=== PATIENT | female | born 1980 | race Caucasian/White ===

== ENCOUNTER 2018-08-21 00:12 | Emergency (ER) | payer MEDICARE, OTHER ==
[2018-08-21] MEDS ORDERED: SODIUM CHLORIDE 0.9% 1,000 ML IV STA (01:35)
[2018-08-21] MEDS ORDERED: ONDANSETRON 4 MG/2 ML VIAL IVP STA (01:35)
[2018-08-21] MEDS ORDERED: DICYCLOMINE 10 MG/ML 2 ML AMP IM STA (01:36)
[2018-08-21] MEDS ORDERED: MORPHINE SULFATE 4 MG/ML SYRINGE IVP STA (01:36)
[2018-08-21 02:52] LABS: ALT 40 U/L (9-52); AST 26 U/L (14-36); Albumin 4.9 g/dL (3.5-5.0); Alkaline Phosphatase 96 U/L (38-126); Amylase 106 U/L (30-110); Anion Gap 14 mmol/L; Blood Urea Nitrogen 19 mg/dL (7-17); Calcium 10.9 mg/dL (8.4-10.2); Carbon Dioxide 24 mmol/L (22-30); Chloride 101 mmol/L (98-107); Glucose 93 mg/dL (74-99); Lipase 253 U/L (23-300); Potassium 4.3 mmol/L (3.5-5.1); Sodium 139 mmol/L (137-145); Total Bilirubin 1.3 mg/dL (0.2-1.3); Total Protein 8.5 g/dL (6.3-8.2)
[2018-08-21 02:53] LABS: Basophils # (A) 0.1 k/uL (0-0.2); Basophils % (A) 1 %; Eosinophils # (A) 0.3 k/uL (0-0.7); Eosinophils % (A) 2 %; HCT 48.5 % (34.0-46.0); HGB 16.4 gm/dL (11.4-16.0); Lymphocytes # (A) 2.3 k/uL (1.0-4.8); Lymphocytes % (A) 16 %; MCH 32.4 pg (25.0-35.0); MCHC 33.8 g/dL (31.0-37.0); MCV 95.8 fL (80.0-100.0); Mean Platelet Volume 7.1; Monocytes # (A) 0.7 k/uL (0-1.0); Monocytes % (A) 5 %; Neutrophils # (A) 11.1 k/uL (1.3-7.7); Neutrophils % (A) 76 %; Platelet Count 512 k/uL (150-450); RBC 5.06 m/uL (3.80-5.40); RDW 12.6 % (11.5-15.5); WBC 14.7 k/uL (3.8-10.6)
--- NOTE | 2018-08-21 03:15 | CT ---
EXAMINATION TYPE: CT abdomen pelvis w con DATE OF EXAM: 08/21/2018 COMPARISON: None HISTORY: abd pain CT DLP: 684 mGycm Automated exposure control for dose reduction was used. TECHNIQUE: Helical acquisition of images was performed from the lung bases through the pelvis. CONTRAST: Performed without Oral Contrast and with IV Contrast, patient injected with 100 mL of Isovue 300. FINDINGS: Lung bases are clear of infiltrate. There is no pleural effusion. Heart size is normal. There is no p ericardial effusion. Liver spleen pancreas gallbladder appear normal. Bile ducts are not dilated. Stomach is large. There is no adrenal mass. Kidneys show satisfactory contrast opacification. There is no hydronephrosi s. Ureters are not dilated. There are clips in the right mid abdomen posteriorly. There is no retrope ritoneal adenopathy. There is lobulated contour of the uterus consistent with fibroid uterus. There i s no inguinal hernia. Bladder distends smoothly. I see no intestinal wall thickening. There are no di lated loops. There is no mesenteric edema or adenopathy. Lumbar spine is intact. The bony pelvis appe ars intact. There is large bowel fluid suggestive of some degree of diarrhea. This is seen down to th e rectum. IMPRESSION: Fibroid uterus. Surgical clips apparently from appendectomy. There is fluid seen in the large bowel down to the rectum consistent with diarrhea..
--- NOTE | 2018-08-21 03:16 | ED ---
Abdominal Pain HPI - General Chief Complaint: Abdominal Pain Stated Complaint: Vomiting, SOB, Abd pain Time Seen by Provider: 08/21/18 01:04 Source: patient, family Mode of arrival: wheelchair Limitations: no limitations - History of Present Illness Initial Comments: 38-year-old female patient presents to the emergency department today for evaluation of left-sided abdominal pain that radiates into her back. Patient states that this started a few hours ago while shopping. Patient states that she has had numerous episodes of both vomiting and diarrhea since symptom onset. She denies any fevers or chills. Denies any hematochezia, melena, or hematemesis. Denies any hematuria, dysuria, urinary frequency, urinary urgency. 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 States she has been sick with upper respiratory symptoms for the last week. Patient states that she did have food from a bar earlier today she is unsure if her symptoms may be related to food poisoning. Patient denies any recent rash, shortness breath, chest pain, numbness, tingling, dizziness, weakness, headache, visual changes, or any other complaints. - Related Data Previous Rx's Medication Instructions Recorded Promethaz-Cod 6.25-10 mg/5 ml 5 ml PO Q4HR PRN #50 ml 07/19/17 [Phenergan with Codeine] Dicyclomine [Bentyl] 20 mg PO QID #12 tablet 08/21/18 Ondansetron [Zofran ODT] 4 mg PO Q8HR PRN #12 tab 08/21/18 Allergies Allergy/AdvReac Type Severity Reaction Status Date / Time No Known Allergies Allergy Verified 04/08/14 19:05 Review of Systems ROS Statement: Those systems with pertinent positive or pertinent negative responses have been documented in the HPI. ROS Other: All systems not noted in ROS Statement are negative. Past Medical History Past Medical History: Cancer, COPD, Osteoarthritis (OA) Additional Past Medical History / Comment(s): scoliosis, djd History of Any Multi-Drug Resistant Organisms: None Reported Past Surgical History: Appendectomy Past Psychological History: Anxiety, Depression Smoking Status: Current every day smoker Past Alcohol Use History: Occasional Past Drug Use History: None Reported General Exam Limitations: no limitations General appearance: alert, in no apparent distress, other (Physical well- developed, well-nourished adult female patient in mild distress related to pain. Vital signs upon presentation are temperature 98.0F, pulse 101, respirations 22, blood pressure 119/87, pulse ox 99% on room air.) Respiratory exam: Present: normal lung sounds bilaterally. Absent: respiratory distress, wheezes, rales, rhonchi, stridor Cardiovascular Exam: Present: regular rate, normal rhythm, normal heart sounds. Absent: systolic murmur, diastolic murmur, rubs, gallop, clicks GI/Abdominal exam: Present: soft, tenderness (Generalized abdominal tenderness) , normal bowel sounds. Absent: distended, guarding, rebound, rigid Neurological exam: Present: alert, oriented X3, CN II-XII intact Psychiatric exam: Present: normal affect, normal mood Skin exam: Present: warm, dry, intact, normal color. Absent: rash Course Vital Signs 08/21/18 08/21/18 08/21/18 00:18 01:18 03:56 Temperature 98.0 F 98.4 F 98.6 F Pulse Rate 101 H 95 Respiratory 22 20 Rate Blood Pressure 119/87 100/63 O2 Sat by Pulse 99 93 L Oximetry Medical Decision Making - Medical Decision Making 38-year-old female patient presents to the emergency department today for complaints of abdominal pain radiating through to the back, vomiting, and diarrhea. Physical examination did reveal generalized abdominal tenderness. There is no CVA tenderness. She denied urinary symptoms. Labs reviewed and did reveal elevated white blood cell count of 14.7, hemoglobin 16.4, BUN 19. CT of the abdomen and pelvis was obtained due to patient's discomfort level and tenderness, this did show evidence of a large stomach and fluid-filled colon down to the rectum. Patient did report eating some questionable coleslaw at a bar earlier today. Patient symptoms consistent with either food poisoning or viral gastroenteritis. She'll be given starter pack for Zofran. She'll be discharged home with Bentyl and Zofran prescriptions. She is instructed to start with clear liquid diet and advance as tolerated. She is instructed to follow-up with her primary care physician for recheck in 1-2 days. Return parameters discussed in detail. She verbalizes understanding and agrees with this plan. - Lab Data Result diagrams: 08/21/18 02:28 08/21/18 02:28 Lab Results 08/21/18 08/21/18 08/21/18 Range/Units 02:28 02:28 02:28 WBC 14.7 H (3.8-10.6) k/uL RBC 5.06 (3.80-5.40) m/uL Hgb 16.4 H (11.4-16.0) gm/dL Hct 48.5 H (34.0-46.0) % MCV 95.8 (80.0-100.0) fL MCH 32.4 (25.0-35.0) pg MCHC 33.8 (31.0-37.0) g/dL RDW 12.6 (11.5-15.5) % Plt Count 512 H (150-450) k/uL Neutrophils % 76 % Lymphocytes % 16 % Monocytes % 5 % Eosinophils % 2 % Basophils % 1 % Neutrophils # 11.1 H (1.3-7.7) k/uL Lymphocytes # 2.3 (1.0-4.8) k/uL Monocytes # 0.7 (0-1.0) k/uL Eosinophils # 0.3 (0-0.7) k/uL Basophils # 0.1 (0-0.2) k/uL Sodium 139 (137-145) mmol/L Potassium 4.3 (3.5-5.1) mmol/L Chloride 101 (98-107) mmol/L Carbon Dioxide 24 (22-30) mmol/L Anion Gap 14 mmol/L BUN 19 H (7-17) mg/dL Creatinine 0.89 (0.52-1.04) mg/dL Est GFR (CKD-EPI)AfAm >90 (>60 ml/min/1.73 sqM) Est GFR (CKD-EPI)NonAf 81 (>60 ml/min/1.73 sqM) Glucose 93 (74-99) mg/dL Plasma Lactic Acid James 1.4 (0.7-2.0) mmol/L Calcium 10.9 H (8.4-10.2) mg/dL Total Bilirubin 1.3 (0.2-1.3) mg/dL AST 26 (14-36) U/L ALT 40 (9-52) U/L Alkaline Phosphatase 96 (38-126) U/L Total Protein 8.5 H (6.3-8.2) g/dL Albumin 4.9 (3.5-5.0) g/dL Amylase 106 (30-110) U/L Lipase 253 (23-300) U/L - Radiology Data Radiology results: report reviewed, image reviewed CT abdomen and pelvis with contrast was obtained. Report was reviewed in its entirety. Impression by Dr. Duke shows fibroid uterus. Surgical clips apparently from appendectomy. There is fluid seen in the large bowel down to the rectum consistent with diarrhea. Disposition Clinical Impression: Gastroenteritis Disposition: HOME SELF-CARE Condition: Good Instructions: Gastroenteritis (ED), Food Poisoning (ED) Additional Instructions: Take medications as directed. Start with clear liquid diet and advance as tolerated. Follow up with your primary care physician for recheck in 1-2 days. Return immediately for any new, worsening, or concerning symptoms. Prescriptions: Dicyclomine [Bentyl] 20 mg PO QID #12 tablet Ondansetron [Zofran ODT] 4 mg PO Q8HR PRN #12 tab PRN Reason: Nausea Is patient prescribed a controlled substance at d/c from ED?: No Referrals: Bi Bass MD [Primary Care Provider] - 1-2 days Time of Disposition: 03:38
[2018-08-21] MEDS ORDERED: MORPHINE SULFATE 2 MG/ML SYRINGE IVP STA (03:36)
[2018-08-21] MEDS ORDERED: ONDANSETRON 4 MG ODT STARTER PACK 2 TAB BTL PO STA (03:36)
[2018-08-21 03:57] VITALS: BP 100/63; PULSE 95; RESP 20; TEMP 98.6
== END 2018-08-21 04:06 | disposition home or self-care (01) ==
LOC: EC 00:12
DX: K52.9 Noninfective gastroenteritis and colitis, unspecified (principal); R06.02 Shortness of breath; F17.200 Nicotine dependence, unspecified, uncomplicated; Z90.49 Acquired absence of other specified parts of digestive tract
CPT/HCPCS: 99284; 96374; 96375; 96376; 96361; 96372; 36415; 80053; 82150; 83605; 83690; 85025; 74177; J2270 ×2; J0500; J2405; S0119; Q9967

== ENCOUNTER 2018-08-29 21:37 | Emergency (ER) | payer MEDICARE, OTHER ==
[2018-08-29] MEDS ORDERED: MORPHINE SULFATE 4 MG/ML SYRINGE IV STA (22:24)
[2018-08-29] MEDS ORDERED: SODIUM CHLORIDE 0.9% 1,000 ML IV STA (22:24)
[2018-08-29] MEDS ORDERED: KETOROLAC 30 MG/ML 1 ML VIAL IVP STA (22:24)
[2018-08-29] MEDS ORDERED: PANTOPRAZOLE 40 MG/10 ML VIAL IVP STA (22:24)
[2018-08-29] MEDS ORDERED: ONDANSETRON 4 MG/2 ML VIAL IVP STA (22:24)
--- NOTE | 2018-08-29 22:26 | ED ---
Abdominal Pain HPI - General Chief Complaint: Abdominal Pain Stated Complaint: Side pain, revisit Time Seen by Provider: 08/29/18 22:13 Source: patient, RN notes reviewed, old records reviewed Mode of arrival: ambulatory Limitations: no limitations - History of Present Illness Initial Comments: This is a 38-year-old female the ER for evaluation. States she is presenting for evaluation of bowel pain. Right upper quadrant bowel pain nausea vomiting and decreased bowel output, decreased hunger, no fevers no cough no congestion or recent travel history no known sick contacts. Patient states she was seen in this emergency department last week for similar complaints but had unknown diagnosis. MD Complaint: abdominal pain -: week(s) Location: RUQ, epigastric Radiation: R flank Severity: moderate Severity scale (1-10): 5 Quality: sharp, dull Consistency: intermittent, colicky Improves With: vomiting Worsens With: movement Associated Symptoms: nausea, vomiting, diarrhea - Related Data Home Medications Medication Instructions Recorded Confirmed ALPRAZolam [Xanax] 0.5 mg PO TID PRN 08/29/18 08/29/18 Ergocalciferol (Vitamin D2) 50,000 unit PO Q7D 08/29/18 08/29/18 [Vitamin D2] Gabapentin [Neurontin] 100 mg PO TID 08/29/18 08/29/18 HYDROcodone/APAP 10-325MG [[place] 1 tab PO Q6HR PRN 08/29/18 08/29/18 10-325] Omeprazole [PriLOSEC] 40 mg PO DAILY 08/29/18 08/29/18 QUEtiapine [SEROquel] 100 mg PO HS 08/29/18 08/29/18 risperiDONE 3 mg PO HS 08/29/18 08/29/18 traZODone HCL 100 mg PO HS 08/29/18 08/29/18 Allergies Allergy/AdvReac Type Severity Reaction Status Date / Time No Known Allergies Allergy Verified 08/29/18 22:23 Review of Systems ROS Statement: Those systems with pertinent positive or pertinent negative responses have been documented in the HPI. ROS Other: All systems not noted in ROS Statement are negative. Past Medical History Past Medical History: Cancer, COPD, Osteoarthritis (OA) Additional Past Medical History / Comment(s): scoliosis, djd History of Any Multi-Drug Resistant Organisms: None Reported Past Surgical History: Appendectomy Past Psychological History: Anxiety, Depression Smoking Status: Current every day smoker Past Alcohol Use History: Occasional Past Drug Use History: None Reported General Exam Limitations: no limitations General appearance: alert, in no apparent distress Head exam: Present: atraumatic, normocephalic, normal inspection Eye exam: Present: normal appearance, PERRL, EOMI. Absent: scleral icterus, conjunctival injection, periorbital swelling ENT exam: Present: normal exam, mucous membranes moist Neck exam: Present: normal inspection. Absent: tenderness, meningismus, lymphadenopathy Respiratory exam: Present: normal lung sounds bilaterally. Absent: respiratory distress, wheezes, rales, rhonchi, stridor Cardiovascular Exam: Present: regular rate, normal rhythm, normal heart sounds. Absent: systolic murmur, diastolic murmur, rubs, gallop, clicks GI/Abdominal exam: Present: soft, tenderness (Right upper quadrant), normal bowel sounds. Absent: distended, guarding, rebound, rigid Extremities exam: Present: normal inspection, full ROM, normal capillary refill. Absent: tenderness, pedal edema, joint swelling, calf tenderness Back exam: Present: normal inspection Neurological exam: Present: alert, oriented X3, CN II-XII intact Psychiatric exam: Present: normal affect, normal mood Skin exam: Present: warm, dry, intact, normal color. Absent: rash Course Vital Signs 08/29/18 08/30/18 21:41 00:14 Temperature 98.3 F 98.4 F Pulse Rate 85 70 Respiratory 18 19 Rate Blood Pressure 115/78 114/75 O2 Sat by Pulse 99 99 Oximetry - Reevaluation(s) Reevaluation #1: 08/29/18 22:26 Medical record and prior ER visits are reviewed Medical Decision Making - Medical Decision Making 2-year-old female the ER for eversion of bowel pain recent evaluation for same, head CAT scan which was negative, though she has ultrasound is negative labwork which is normal patient will be discharged home - Lab Data Result diagrams: 08/29/18 22:30 08/29/18 22:30 Lab Results 08/29/18 08/29/18 08/29/18 Range/Units 22:30 22:30 22:40 WBC 11.9 H (3.8-10.6) k/uL RBC 4.46 (3.80-5.40) m/uL Hgb 14.7 (11.4-16.0) gm/dL Hct 42.7 (34.0-46.0) % MCV 95.8 (80.0-100.0) fL MCH 32.8 (25.0-35.0) pg MCHC 34.3 (31.0-37.0) g/dL RDW 12.8 (11.5-15.5) % Plt Count 389 (150-450) k/uL Neutrophils % 68 % Lymphocytes % 23 % Monocytes % 4 % Eosinophils % 3 % Basophils % 1 % Neutrophils # 8.1 H (1.3-7.7) k/uL Lymphocytes # 2.7 (1.0-4.8) k/uL Monocytes # 0.5 (0-1.0) k/uL Eosinophils # 0.3 (0-0.7) k/uL Basophils # 0.1 (0-0.2) k/uL Sodium 142 (137-145) mmol/L Potassium 4.1 (3.5-5.1) mmol/L Chloride 108 H (98-107) mmol/L Carbon Dioxide 25 (22-30) mmol/L Anion Gap 9 mmol/L BUN 10 (7-17) mg/dL Creatinine 0.72 (0.52-1.04) mg/dL Est GFR (CKD-EPI)AfAm >90 (>60 ml/min/1.73 sqM) Est GFR (CKD-EPI)NonAf >90 (>60 ml/min/1.73 sqM) Glucose 97 (74-99) mg/dL Calcium 10.0 (8.4-10.2) mg/dL Total Bilirubin 0.3 (0.2-1.3) mg/dL AST 20 (14-36) U/L ALT 32 (9-52) U/L Alkaline Phosphatase 59 (38-126) U/L Total Protein 7.0 (6.3-8.2) g/dL Albumin 4.2 (3.5-5.0) g/dL Amylase 101 (30-110) U/L Lipase 508 H (23-300) U/L Urine Color Urine Appearance (Clear) Urine pH (5.0-8.0) Ur Specific [place] (1.001-1.035) Urine Protein (Negative) Urine Glucose (UA) (Negative) Urine Ketones (Negative) Urine Blood (Negative) Urine Nitrite (Negative) Urine Bilirubin (Negative) Urine Urobilinogen (<2.0) mg/dL Ur Leukocyte Esterase (Negative) Urine WBC (0-5) /hpf Ur Squamous Epith Cells (0-4) /hpf Amorphous Sediment (None) /hpf Urine Bacteria (None) /hpf Urine Mucus (None) /hpf Urine HCG, Qual Not Detected (Not Detectd) 08/29/18 Range/Units 22:40 WBC (3.8-10.6) k/uL RBC (3.80-5.40) m/uL Hgb (11.4-16.0) gm/dL Hct (34.0-46.0) % MCV (80.0-100.0) fL MCH (25.0-35.0) pg MCHC (31.0-37.0) g/dL RDW (11.5-15.5) % Plt Count (150-450) k/uL Neutrophils % % Lymphocytes % % Monocytes % % Eosinophils % % Basophils % % Neutrophils # (1.3-7.7) k/uL Lymphocytes # (1.0-4.8) k/uL Monocytes # (0-1.0) k/uL Eosinophils # (0-0.7) k/uL Basophils # (0-0.2) k/uL Sodium (137-145) mmol/L Potassium (3.5-5.1) mmol/L Chloride (98-107) mmol/L Carbon Dioxide (22-30) mmol/L Anion Gap mmol/L BUN (7-17) mg/dL Creatinine (0.52-1.04) mg/dL Est GFR (CKD-EPI)AfAm (>60 ml/min/1.73 sqM) Est GFR (CKD-EPI)NonAf (>60 ml/min/1.73 sqM) Glucose (74-99) mg/dL Calcium (8.4-10.2) mg/dL Total Bilirubin (0.2-1.3) mg/dL AST (14-36) U/L ALT (9-52) U/L Alkaline Phosphatase (38-126) U/L Total Protein (6.3-8.2) g/dL Albumin (3.5-5.0) g/dL Amylase (30-110) U/L Lipase (23-300) U/L Urine Color Light Yellow Urine Appearance Cloudy H (Clear) Urine pH 7.5 (5.0-8.0) Ur Specific [place] 1.012 (1.001-1.035) Urine Protein Negative (Negative) Urine Glucose (UA) Negative (Negative) Urine Ketones Negative (Negative) Urine Blood Negative (Negative) Urine Nitrite Negative (Negative) Urine Bilirubin Negative (Negative) Urine Urobilinogen <2.0 (<2.0) mg/dL Ur Leukocyte Esterase Negative (Negative) Urine WBC 2 (0-5) /hpf Ur Squamous Epith Cells 28 H (0-4) /hpf Amorphous Sediment Rare H (None) /hpf Urine Bacteria Occasional H (None) /hpf Urine Mucus Rare H (None) /hpf Urine HCG, Qual (Not Detectd) - Radiology Data Radiology results: report reviewed (Ultrasound abdomen is negative for gallbladder disease), image reviewed Disposition Clinical Impression: Abdominal pain Disposition: HOME SELF-CARE Condition: Good Instructions: Abdominal Pain (ED) Is patient prescribed a controlled substance at d/c from ED?: No Referrals: Bi Bass MD [Primary Care Provider] - 1-2 days
[2018-08-29 23:22] LABS: Basophils # (A) 0.1 k/uL (0-0.2); Basophils % (A) 1 %; Eosinophils # (A) 0.3 k/uL (0-0.7); Eosinophils % (A) 3 %; HCT 42.7 % (34.0-46.0); HGB 14.7 gm/dL (11.4-16.0); Lymphocytes # (A) 2.7 k/uL (1.0-4.8); Lymphocytes % (A) 23 %; MCH 32.8 pg (25.0-35.0); MCHC 34.3 g/dL (31.0-37.0); MCV 95.8 fL (80.0-100.0); Mean Platelet Volume 7.1; Monocytes # (A) 0.5 k/uL (0-1.0); Monocytes % (A) 4 %; Neutrophils # (A) 8.1 k/uL (1.3-7.7); Neutrophils % (A) 68 %; Platelet Count 389 k/uL (150-450); RBC 4.46 m/uL (3.80-5.40); RDW 12.8 % (11.5-15.5); WBC 11.9 k/uL (3.8-10.6)
[2018-08-29 23:26] LABS: Amorphous Sediment,Urine Rare /hpf; Appearance,Urine Cloudy (Clear); Bacteria,Urine Occasional /hpf; Bilirubin,Urine Negative (Negative); Blood,Urine Negative (Negative); Color,Urine Light Yellow; Glucose,Urine (UA) Negative (Negative); Ketones,Urine Negative (Negative); Leukocyte Esterase,Urine Negative (Negative); Mucus,Urine Rare /hpf; Nitrite,Urine Negative (Negative); PH, Urine 7.5 (5.0-8.0); Protein,Urine Negative (Negative); Specific Gravity,Urine 1.012 (1.001-1.035); Squamous Epithelial Cell,Urine 28 /hpf (0-4); Urobilinogen,Urine <2.0 mg/dL (<2.0); WBC,Urine 2 /hpf (0-5)
[2018-08-29 23:29] LABS: ALT 32 U/L (9-52); AST 20 U/L (14-36); Albumin 4.2 g/dL (3.5-5.0); Alkaline Phosphatase 59 U/L (38-126); Amylase 101 U/L (30-110); Anion Gap 9 mmol/L; Blood Urea Nitrogen 10 mg/dL (7-17); Carbon Dioxide 25 mmol/L (22-30); Chloride 108 mmol/L (98-107); Glucose 97 mg/dL (74-99); Lipase 508 U/L (23-300); Potassium 4.1 mmol/L (3.5-5.1); Sodium 142 mmol/L (137-145); Total Bilirubin 0.3 mg/dL (0.2-1.3)
--- NOTE | 2018-08-29 23:50 | US ---
EXAMINATION TYPE: US gallbladder DATE OF EXAM: 08/29/2018 COMPARISON: NONE CLINICAL HISTORY: Pain. Pain EXAM MEASUREMENTS: Liver Length: 14.5 cm Gallbladder Wall: 0.3 cm CBD: 0.3 cm Right Kidney: 9.5 x 3.8 x 4.2 cm Pancreas: Tail obscured by bowel gas Liver: wnl Gallbladder: wnl Evidence for sonographic Lane's sign: No CBD: wnl Right Kidney: wnl IMPRESSION: No gallstones or dilated ducts. Negative exam. No evidence of pancreatic mass.
[2018-08-30 00:20] VITALS: BP 114/75; PULSE 70; RESP 19; TEMP 98.4
== END 2018-08-30 00:15 | disposition home or self-care (01) ==
LOC: EC 21:37
DX: R10.11 Right upper quadrant pain (principal); R10.13 Epigastric pain; R11.2 Nausea with vomiting, unspecified; R19.7 Diarrhea, unspecified; F41.9 Anxiety disorder, unspecified; F32.9 Major depressive disorder, single episode, unspecified; F17.200 Nicotine dependence, unspecified, uncomplicated; Z90.49 Acquired absence of other specified parts of digestive tract; Z85.9 Personal history of malignant neoplasm, unspecified; Z79.899 Other long term (current) drug therapy
CPT/HCPCS: 36415; 80053; 82150; 83690; 85025; 81001; 81025; 87086; 76705; 99284; 96374; 96375 ×3; 96361; J2270; J2405; J1885; C9113

== ENCOUNTER 2018-11-25 11:51 | Emergency (ER) | payer MEDICARE, OTHER ==
[2018-11-25 12:24] VITALS: RESP 18
[2018-11-25 13:26] LABS: Basophils # (A) 0.1 k/uL (0-0.2); Basophils % (A) 0 %; Eosinophils # (A) 0.5 k/uL (0-0.7); Eosinophils % (A) 2 %; HCT 42.1 % (34.0-46.0); HGB 13.8 gm/dL (11.4-16.0); Lymphocytes # (A) 1.3 k/uL (1.0-4.8); Lymphocytes % (A) 5 %; MCH 32.5 pg (25.0-35.0); MCHC 32.9 g/dL (31.0-37.0); MCV 98.9 fL (80.0-100.0); Mean Platelet Volume 7.3; Monocytes # (A) 0.9 k/uL (0-1.0); Monocytes % (A) 4 %; Neutrophils # (A) 20.9 k/uL (1.3-7.7); Neutrophils % (A) 88 %; Platelet Count 262 k/uL (150-450); RBC 4.25 m/uL (3.80-5.40); RDW 13.3 % (11.5-15.5); WBC 23.7 k/uL (3.8-10.6)
[2018-11-25] MEDS ORDERED: DEXAMETHASONE SOD PHOSPHATE 4 MG/ML 1 ML VIAL IV STA (13:26)
[2018-11-25 13:37] LABS: ALT 25 U/L (9-52); AST 25 U/L (14-36); Albumin 3.9 g/dL (3.5-5.0); Alkaline Phosphatase 107 U/L (38-126); Anion Gap 10 mmol/L; Blood Urea Nitrogen 10 mg/dL (7-17); Calcium 9.4 mg/dL (8.4-10.2); Carbon Dioxide 22 mmol/L (22-30); Chloride 106 mmol/L (98-107); Glucose 117 mg/dL (74-99); Potassium 3.9 mmol/L (3.5-5.1); Sodium 138 mmol/L (137-145); Total Bilirubin 1.2 mg/dL (0.2-1.3); Total Protein 6.8 g/dL (6.3-8.2)
[2018-11-25] MEDS ORDERED: AMOXICILLIN 500 MG CAP PO STA (13:37)
[2018-11-25] MEDS ORDERED: ACETAMINOPHEN TAB 500 MG TAB PO STA (13:42)
--- NOTE | 2018-11-25 13:43 | ED ---
ENT HPI - General Chief complaint: ENT Stated complaint: Sore throat Source: patient Mode of arrival: ambulatory Limitations: no limitations - History of Present Illness Initial comments: 38-year-old female presenting for sore throat 3 days. Patient states she has a sore throat as well as feelings of chills for the past 2 days. She states she has increased pain with swallowing. Patient denies any difficulty swallowing. Patient denies any difficulty breathing. Patient does feel like her right side of her neck is swollen. Pt does admit to some voice changes, hoarse in characteristic. She denies any cough, nausea, vomiting, bowel pain, chest pain, dyspnea, dyspnea on exertion, back pain, neck pain or stiffness. Remaining review of systems negative upon arrival patient appears well no signs of acute distress, or toxicity. Vital signs are within normal limits. - Related Data Home Medications Medication Instructions Recorded Confirmed ALPRAZolam [Xanax] 0.5 mg PO TID PRN 08/29/18 11/25/18 Ergocalciferol (Vitamin D2) 50,000 unit PO QMONTH 08/29/18 11/25/18 [Vitamin D2] Gabapentin [Neurontin] 100 mg PO TID 08/29/18 11/25/18 HYDROcodone/APAP 10-325MG [[place] 1 tab PO Q6HR PRN 08/29/18 11/25/18 10-325] Omeprazole [PriLOSEC] 20 mg PO DAILY PRN 08/29/18 11/25/18 risperiDONE 3 mg PO HS 08/29/18 11/25/18 traZODone HCL 100 mg PO HS 08/29/18 11/25/18 Diphenoxylate HCl/Atropine 1 tab PO DAILY PRN 11/25/18 11/25/18 [Lomotil 2.5-0.025 mg Tablet] Previous Rx's Medication Instructions Recorded Amoxicillin 500 mg PO Q12HR 10 Days #20 cap 11/25/18 predniSONE 20 mg PO DAILY 5 Days #5 tab 11/25/18 Allergies Allergy/AdvReac Type Severity Reaction Status Date / Time No Known Allergies Allergy Verified 11/25/18 12:48 Review of Systems ROS Statement: Those systems with pertinent positive or pertinent negative responses have been documented in the HPI. ROS Other: All systems not noted in ROS Statement are negative. Past Medical History Past Medical History: COPD, Osteoarthritis (OA) Additional Past Medical History / Comment(s): scoliosis, djd History of Any Multi-Drug Resistant Organisms: None Reported Past Surgical History: Appendectomy Past Psychological History: Anxiety, Depression Smoking Status: Current every day smoker Past Alcohol Use History: Rare Past Drug Use History: None Reported General Exam - General Exam Comments Initial Comments: General: The patient is awake and alert, in no distress, and does not appear acutely ill. Eye: +3 mm pupils are equal, round and reactive to light, extra-ocular movements are intact. No nystagmus. There is normal conjunctiva bilaterally. No signs of icterus. Ears, nose, mouth and throat: There are moist mucous membranes and no oral lesions. Pharynx is erythematous, there is bilateral tonsillar enlargement with exudates and crypts. Uvula slightly deviated toward the left. No swelling below the tongue, no evidence of dental abscess. Neck: The neck is supple, there is no tenderness or JVD. Bilateral anterior cervical lymphadenopathy, with right sided greater than the left. No trimus, no tripoding. Cardiovascular: There is a regular rate and rhythm. No murmur, rub or gallop is appreciated. Respiratory: Lungs are clear to auscultation, respirations are non-labored, breath sounds are equal. No wheezes, stridor, rales, or rhonchi. Gastrointestinal: Soft, non-distended, non-tender abdomen without masses or organomegaly noted. There is no rebound or guarding present. Musculoskeletal: Normal ROM, no tenderness. Strength 5/5. Sensation intact. Radial pulses equal bilaterally 2+. Neurological: A&O x 3. CN II-XII intact, There are no obvious motor or sensory deficits. Coordination appears grossly intact. Speech is normal. Skin: Skin is warm and dry and no rashes or lesions are noted. Psychiatric: Cooperative, appropriate mood & affect, normal judgment. Limitations: no limitations Course Vital Signs 11/25/18 11/25/18 12:21 15:45 Temperature 98.7 F 98.9 F Pulse Rate 87 84 Respiratory 18 18 Rate Blood Pressure 104/68 109/78 O2 Sat by Pulse 99 98 Oximetry Medical Decision Making - Medical Decision Making Strep A (+), CT revealed with adenopathy there is no evidence of abscess, pt given decadron and Amoxicillin. No signs of respiratory distress. Findings discussed with patient who at this time is comfortable with outpatient treatment with oral antibiotics. She was given a prescription for prednisone 20 mg daily 5 days as well as amoxicillin 500 twice a day 10 days. Pt is to f/ u in 1-2 days with primary provider and return immediately for any difficulty breathing or swallowing. Patient verbalized understanding. Patient is able to tolerate by mouth intake without difficulty. Discussed case attending provider , Dr. Lange who is agreeable with plan and discharge. - Lab Data Result diagrams: 11/25/18 13:10 11/25/18 13:10 Lab Results 11/25/18 11/25/18 11/25/18 Range/Units 13:10 13:10 13:10 WBC 23.7 H (3.8-10.6) k/uL RBC 4.25 (3.80-5.40) m/uL Hgb 13.8 (11.4-16.0) gm/dL Hct 42.1 (34.0-46.0) % MCV 98.9 (80.0-100.0) fL MCH 32.5 (25.0-35.0) pg MCHC 32.9 (31.0-37.0) g/dL RDW 13.3 (11.5-15.5) % Plt Count 262 (150-450) k/uL Neutrophils % 88 % Lymphocytes % 5 % Monocytes % 4 % Eosinophils % 2 % Basophils % 0 % Neutrophils # 20.9 H (1.3-7.7) k/uL Lymphocytes # 1.3 (1.0-4.8) k/uL Monocytes # 0.9 (0-1.0) k/uL Eosinophils # 0.5 (0-0.7) k/uL Basophils # 0.1 (0-0.2) k/uL Sodium (137-145) mmol/L Potassium (3.5-5.1) mmol/L Chloride (98-107) mmol/L Carbon Dioxide (22-30) mmol/L Anion Gap mmol/L BUN (7-17) mg/dL Creatinine (0.52-1.04) mg/dL Est GFR (CKD-EPI)AfAm (>60 ml/min/1.73 sqM) Est GFR (CKD-EPI)NonAf (>60 ml/min/1.73 sqM) Glucose (74-99) mg/dL Calcium (8.4-10.2) mg/dL Total Bilirubin (0.2-1.3) mg/dL AST (14-36) U/L ALT (9-52) U/L Alkaline Phosphatase (38-126) U/L Total Protein (6.3-8.2) g/dL Albumin (3.5-5.0) g/dL Heterophile Antibody (Negative) Influenza Type A RNA Not Detected (Not Detectd) Influenza Type B (PCR) Not Detected (Not Detectd) Group A Strep Rapid Positive A (Negative) 11/25/18 11/25/18 Range/Units 13:10 13:10 WBC (3.8-10.6) k/uL RBC (3.80-5.40) m/uL Hgb (11.4-16.0) gm/dL Hct (34.0-46.0) % MCV (80.0-100.0) fL MCH (25.0-35.0) pg MCHC (31.0-37.0) g/dL RDW (11.5-15.5) % Plt Count (150-450) k/uL Neutrophils % % Lymphocytes % % Monocytes % % Eosinophils % % Basophils % % Neutrophils # (1.3-7.7) k/uL Lymphocytes # (1.0-4.8) k/uL Monocytes # (0-1.0) k/uL Eosinophils # (0-0.7) k/uL Basophils # (0-0.2) k/uL Sodium 138 (137-145) mmol/L Potassium 3.9 (3.5-5.1) mmol/L Chloride 106 (98-107) mmol/L Carbon Dioxide 22 (22-30) mmol/L Anion Gap 10 mmol/L BUN 10 (7-17) mg/dL Creatinine 0.78 (0.52-1.04) mg/dL Est GFR (CKD-EPI)AfAm >90 (>60 ml/min/1.73 sqM) Est GFR (CKD-EPI)NonAf >90 (>60 ml/min/1.73 sqM) Glucose 117 H (74-99) mg/dL Calcium 9.4 (8.4-10.2) mg/dL Total Bilirubin 1.2 (0.2-1.3) mg/dL AST 25 (14-36) U/L ALT 25 (9-52) U/L Alkaline Phosphatase 107 (38-126) U/L Total Protein 6.8 (6.3-8.2) g/dL Albumin 3.9 (3.5-5.0) g/dL Heterophile Antibody Negative (Negative) Influenza Type A RNA (Not Detectd) Influenza Type B (PCR) (Not Detectd) Group A Strep Rapid (Negative) Disposition Clinical Impression: Strep throat Disposition: HOME SELF-CARE Condition: Good Instructions (If sedation given, give patient instructions): Strep Throat (ED) Additional Instructions: Please use medication as discussed. Please follow-up with family doctor in the next 2 days. Please return to emergency room if the symptoms increase or worsen or for any other concerns. Prescriptions: Amoxicillin 500 mg PO Q12HR 10 Days #20 cap predniSONE 20 mg PO DAILY 5 Days #5 tab Is patient prescribed a controlled substance at d/c from ED?: No Referrals: Bi Bass MD [Primary Care Provider] - 1-2 days Time of Disposition: 15:26
--- NOTE | 2018-11-25 15:00 | CT ---
EXAMINATION TYPE: CT soft tissue neck w con DATE OF EXAM: 11/25/2018 COMPARISON: HISTORY: Sore throat CT DLP: 213.5 mGycm CONTRAST: Patient injected with 100 mL of Isovue 300. TECHNIQUE: Axial images at 3 mm thick sections. Reconstructed images in the coronal plane and sagitt al plane are reviewed. FINDINGS: Limited CT sections are obtained the lung apices. The lung apices appear clear. CT neck: The torus tubarius and fossa of [place] are normal. [employer] spaces are normal. Para nasal sinuses and mastoid air cells are clear. Parotid glands appear normal and symmetrical. Submandibular glands, are normal. Parapharyngeal spac es are normal. No suspicious tonsillar pillar abnormalities are identified. There is an enlarged jugulodigastric lymph node on the right measuring 1.3 cm. Normal is 1.0 cm. A pr ominent left jugulodigastric node measuring 1.0 cm is also present. There are multiple smaller billing associate ior triangle lymph nodes. Submandibular and submental regions appear normal. The hypopharynx appears within normal limits. Vocal cord level appear symmetrical. Thyroid as visualized is normal. Osseous structures are normal. IMPRESSIONS: 1. Enlarged jugulodigastric lymph nodes with multiple additional smaller posterior triangle nodes, mo re so on the right. Findings are nonspecific. Reactive lymphadenopathy could be considered. Other uriah ologies including lymphoma are not excluded.
[2018-11-25 15:47] VITALS: BP 109/78; PULSE 84; TEMP 98.9
== END 2018-11-25 15:47 | disposition home or self-care (01) ==
LOC: EC 11:51
DX: J02.0 Streptococcal pharyngitis (principal); F32.9 Major depressive disorder, single episode, unspecified; F41.9 Anxiety disorder, unspecified; F17.200 Nicotine dependence, unspecified, uncomplicated; Z79.899 Other long term (current) drug therapy
CPT/HCPCS: 36415; 80053; 85025; 86308; 87430; 87502; 70491; 99283; 96374; J1100; Q9967

== ENCOUNTER 2019-06-06 10:30 | Day surgery (SDC) | payer MEDICARE, OTHER ==
[2019-06-04 11:01] VITALS: BMI 28.3
[~2019-06-06 10:30] MED LIST: LACTATED RINGERS 1,000 ML IV SCH; LIDOCAINE 1% 20 ML VIAL (10MG/ML) FOR IV START INTRADERMA PRN
[2019-06-06 11:02] VITALS: RESP 16; TEMP 97.2
[2019-06-06] MEDS ORDERED: PROPOFOL 10 MG/ML 20 ML VIAL IV ONE (11:46)
[2019-06-06] MEDS ORDERED: LIDOCAINE 1% INJ 10MG/ML (20 ML MDV) ONE (11:46)
[2019-06-06 12:29] VITALS: PULSE 81
--- NOTE | 2019-06-06 12:29 | P.PCN ---
Date of Procedure: 06/06/19 Description of Procedure: Brief history: Patient is a pleasant scheduled for an elective upper endoscopy as well as colonoscopy as a part of evaluation of chronic constipation, abdominal pain and GERD. Patient reports a long-standing history of gastroesophageal reflux disease on treatment with omeprazole therapy. She also has a history of chronic constipation and was prescribed lactulose twice a day from us appointment. She also notes abdominal pain described as severe across the upper abdomen with associated aching and cramping sensation and radiation into her back occasionally. Procedure performed: Esophagogastroduodenoscopy with biopsy Colonoscopy Estimated blood loss: Minimal. Preoperative diagnosis: Anesthesia: MAC Procedure: After informed consent was obtained from the patient was brought into the endoscopy unit and IV sedation was administered by anesthesia under continuous monitoring. Initially upper endoscopy was done. The Olympus GF 190 video endoscope was inserted inserted into the mouth and esophagus intubated without any difficulty and was gradually advanced into the stomach and duodenum and carefully examined. The bulb and second part of the duodenum appeared normal, with biopsies taken. The scope was then withdrawn into the stomach adequately insufflated with air and upon careful examination the antrum and body, cardia and fundus appeared normal, except for some mild scattered erythema in the antrum and body suggestive of mild gastritis with biopsies of the antrum and body taken. The scope was then withdrawn into the esophagus. The GE junction was located at 38 cm to the incisors, which was biopsied. It appeared regular with no erythema erosions or ulcerations. Rest of the esophagus appeared normal. Patient tolerated the procedure well. At this time the patient continued to remain sedation. Initial digital rectal examination was normal. Olympus CF 190 video colonoscope was then inserted into the rectum and gradually advanced to the cecum without any difficulty. Careful examination was performed as the scope was gradually being withdrawn. The prep was excellent. The cecum, ascending colon, transverse colon, descending colon, sigmoid colon and rectum appeared normal, with random biopsies taken of the right and left colon. Diminutive 2 mm descending colon polyp removed with cold forcep polypectomy. Mild internal hemorrhoids noted. Retroflexion was performed in the rectum and no lesions were noted. Patient tolerated the procedure well. Impression: 1. Mild gastritis antrum body, biopsied. GE junction biopsies. Duodenal biopsies 2. Normal-appearing colon from rectum to cecum, with terminal ileum intubated and also appearing normal. Random biopsies of the right and left colon. Diminutive descending colon polyp removed with cold forceps polypectomy. Recommendations: Findings of this examination were discussed with the patient. Okay to resume diet and medications. Follow-up with gastroenterology clinic as previously scheduled. Continue bowel regimen and omeprazole therapy. Await pathology from biopsies and polypectomy.
[2019-06-06 13:25] VITALS: BP 113/75
== END 2019-06-06 13:29 | disposition home or self-care (01) ==
LOC: ORWHC2ENDO 10:30
PROVIDERS: ATTEND Internal Medicine
DX: K29.50 Unspecified chronic gastritis without bleeding (principal); K63.5 Polyp of colon; K59.09 Other constipation; K64.8 Other hemorrhoids; K21.9 Gastro-esophageal reflux disease without esophagitis; J44.9 Chronic obstructive pulmonary disease, unspecified; F17.210 Nicotine dependence, cigarettes, uncomplicated; F41.9 Anxiety disorder, unspecified; F32.9 Major depressive disorder, single episode, unspecified; M45.9 Ankylosing spondylitis of unspecified sites in spine; M19.90 Unspecified osteoarthritis, unspecified site; M41.9 Scoliosis, unspecified; Z79.899 Other long term (current) drug therapy; Z90.49 Acquired absence of other specified parts of digestive tract; Z80.3 Family history of malignant neoplasm of breast
CPT/HCPCS: 81025; 88305; 45380; 43239; J2001; J2704

== ENCOUNTER → 2020-04-23 | Outpatient (CLI) | payer MEDICARE, OTHER ==
--- NOTE | 2020-04-23 08:40 | CT ---
EXAMINATION TYPE: CT abdomen pelvis wo con DATE OF EXAM: 04/23/2020 HISTORY: Abdominal distension with extremity swelling CT DLP: 530.5 mGycm. Automated Exposure Control for Dose Reduction was Utilized. TECHNIQUE: CT scan of the abdomen and pelvis is performed without oral or IV contrast. COMPARISON: CT abdomen and pelvis August 21, 2018 FINDINGS: Within the limitations of a non-contrast study, the following observations are made. LUNG BASES: Persistent linear scarring in the lingula. LIVER/GB: No significant abnormality is appreciated. PANCREAS: No significant abnormality is seen. SPLEEN: No significant abnormality is seen. ADRENALS: No significant abnormality is seen. KIDNEYS: No renal stones or hydronephrosis is seen bilaterally. BOWEL: Surgical clips from appendectomy at base of cecum suboptimal evaluation of bowel without enter ic contrast. Mild wall thickening in the left and proximal sigmoid colon presumed product of under di stention. Additional mild wall thickening sigmoid rectal colon with mild fat stranding in the presacr al space suspicious for a mild uncomplicated acute colitis. No suspicious small or large bowel dilata tion. GENITAL ORGANS: Lobulated heterogeneous slightly enlarged uterus likely reflecting underlying fibroid disease. LYMPH NODES: No greater than 1cm abdominal or pelvic lymph nodes are appreciated. OSSEOUS STRUCTURES: No significant abnormality is seen. OTHER: Small to moderate-size fat-containing umbilical hernia. Displaced appendectomy clip into the l eft lateral mid peritoneal cavity axial image 78. IMPRESSION: 1. No significant ascites or worrisome focal fluid collection. No worrisome new mass or adenopathy. 2. Suspect mild uncomplicated distal acute colitis, correlate clinically. Differential includes infec tious and/or inflammatory etiologies. 3. Probable fibroid uterus redemonstrated.
== END | disposition home or self-care (01) ==
LOC: RADCTMAIN 08:05
PROVIDERS: ATTEND Family Medicine
DX: R10.9 Unspecified abdominal pain (principal)
CPT/HCPCS: 74176

== ENCOUNTER 2020-05-08 14:13 | Emergency (ER) | payer MEDICARE, OTHER ==
--- NOTE | 2020-05-08 14:35 | ED ---
Abdominal Pain HPI - General Chief Complaint: Abdominal Pain Stated Complaint: Uterine Fibroids, Abd pain Time Seen by Provider: 05/08/20 14:23 Source: patient Mode of arrival: ambulatory Limitations: no limitations - History of Present Illness Initial Comments: Patient is a 40-year-old female with history of uterine fibroids presents emergency department with a chief complaint of abdominal pain. Patient reports her abdominal pain has been outlined for about 1.5 years. Patient reports she has seen a primary care physician who recently ordered a CT of the abdomen and pelvis which revealed uterine fibroids. Patient states she was advised to see a design tech but the primary care physician is yet to schedule her for an appointment. Patient reports the pain has been consistent for 1.5 years. Patient reports she does have history of ankylosing spondylitis and takes Percocets daily for pain control and it is not alleviating her symptoms. She also reports dark yellow discharge for about 1.5 years. Patient reports no dysuria, increased urgency or frequency. Denies any hematuria, hematochezia or melena. Denies any night sweats or chills. States she recently finished her menstrual period which typically last 7-10 days and are heavy. Abdominal Surgical history of appendectomy. - Related Data Home Medications Medication Instructions Recorded Confirmed ALPRAZolam [Xanax] 0.5 mg PO TID PRN 08/29/18 06/04/19 Ergocalciferol (Vitamin D2) 50,000 unit PO QMONTH 08/29/18 06/04/19 [Vitamin D2] HYDROcodone/APAP 10-325MG [[place] 1 tab PO Q6HR PRN 08/29/18 06/04/19 10-325] Omeprazole [PriLOSEC] 40 mg PO DAILY 08/29/18 06/04/19 risperiDONE 3 mg PO HS 08/29/18 06/04/19 traZODone HCL 100 mg PO HS 08/29/18 06/04/19 Albuterol Inhaler (Mhu) [Ventolin 1 - 2 puff INHALATION RT-Q6H PRN 06/04/19 06/04/19 Hfa Inhaler] L.acidoph,Paracasei, B.lactis 1 each PO DAILY 06/04/19 06/04/19 [Probiotic] Allergies Allergy/AdvReac Type Severity Reaction Status Date / Time No Known Allergies Allergy Verified 05/08/20 14:21 Review of Systems ROS Statement: Those systems with pertinent positive or pertinent negative responses have been documented in the HPI. ROS Other: All systems not noted in ROS Statement are negative. Past Medical History Past Medical History: COPD, Osteoarthritis (OA) Additional Past Medical History / Comment(s): scoliosis, djd, ankylosing spondylitis, heart murmur, uterine fibroids History of Any Multi-Drug Resistant Organisms: None Reported Past Surgical History: Appendectomy Past Anesthesia/Blood Transfusion Reactions: No Reported Reaction Past Psychological History: Anxiety, Depression Smoking Status: Current every day smoker Past Alcohol Use History: Rare Past Drug Use History: None Reported - Past Family History Mother Family Medical History: Cancer Additional Family Medical History / Comment(s): breast cancer General Exam Limitations: no limitations General appearance: alert, in no apparent distress, obese Head exam: Present: atraumatic, normocephalic, normal inspection Eye exam: Present: normal appearance, EOMI Pupils: Present: normal accommodation ENT exam: Present: normal exam, normal oropharynx, mucous membranes moist Neck exam: Present: normal inspection, full ROM. Absent: tenderness Respiratory exam: Present: normal lung sounds bilaterally. Absent: respiratory distress, wheezes, rales Cardiovascular Exam: Present: regular rate, normal rhythm, normal heart sounds GI/Abdominal exam: Present: soft, tenderness (Lower abdominal tenderness), n ormal bowel sounds. Absent: distended, guarding, rebound, rigid External exam: Present: normal external exam. Absent: erythema, swelling, lesions, lacerations, ecchymosis Speculum exam: Present: normal speculum exam. Absent: erythema, vaginal disc harge, cervical discharge, vaginal bleeding, foreign body By manual exam: Present: normal by manual exam. Absent: cervical motion tenderness, adnexal tenderness Extremities exam: Present: normal inspection, full ROM, normal capillary refill. Absent: tenderness Back exam: Present: normal inspection, full ROM, CVA tenderness (R). Absent: tenderness Neurological exam: Present: alert, oriented X3 Psychiatric exam: Present: normal affect, normal mood Skin exam: Present: warm, dry, intact, normal color Course Vital Signs 05/08/20 05/08/20 05/08/20 14:17 14:21 15:21 Temperature 98.1 F Pulse Rate 98 Respiratory 16 18 18 Rate Blood Pressure 127/84 O2 Sat by Pulse 98 Oximetry Medical Decision Making - Medical Decision Making Patient is a 40-year-old female presenting to the emergency department with a chief complaint of abdominal pain. Patient has had the symptoms for about 1.5 years and is yet to see a design tech. Her exam patient has some lower abdominal tenderness with mild right CVA tenderness. Patient takes Percocets every 4 home for ankylosing spondylitis and it is not alleviating the pain. She did have some vaginal discharge. Pelvic examination reveals no abnormal findings. Gonorrhea, chlamydia and Trichomonas testing pending. CBC reveals mild obesity also 12.4. CMP and UA are unremarkable. Patient had an abdomen and pelvis CT on 04/23/20 which revealed lobulated heterogeneous slightly enlarged uterus likely reflecting underlying thyroid disease. I gave the patient several design tech available. I advised her the importance of seeing a design tech. Patient was given antiemetics, analgesia and fluids in the emergency department. Reevaluation patient reports improvement in symptoms. Strict return parameters were thoroughly discussed the patient is understanding and agreeable. Case discussed physician. - Lab Data Result diagrams: 05/08/20 15:14 05/08/20 15:14 Lab Results 05/08/20 05/08/20 05/08/20 Range/Units 15:14 15:14 15:14 WBC 12.9 H (3.8-10.6) k/uL RBC 4.54 (3.80-5.40) m/uL Hgb 14.6 (11.4-16.0) gm/dL Hct 43.7 (34.0-46.0) % MCV 96.2 (80.0-100.0) fL MCH 32.1 (25.0-35.0) pg MCHC 33.4 (31.0-37.0) g/dL RDW 13.0 (11.5-15.5) % Plt Count 360 (150-450) k/uL Neutrophils % 67 % Lymphocytes % 24 % Monocytes % 4 % Eosinophils % 2 % Basophils % 2 % Neutrophils # 8.7 H (1.3-7.7) k/uL Lymphocytes # 3.1 (1.0-4.8) k/uL Monocytes # 0.6 (0-1.0) k/uL Eosinophils # 0.3 (0-0.7) k/uL Basophils # 0.2 (0-0.2) k/uL Sodium 137 (137-145) mmol/L Potassium 3.9 (3.5-5.1) mmol/L Chloride 104 (98-107) mmol/L Carbon Dioxide 26 (22-30) mmol/L Anion Gap 7 mmol/L BUN 15 (7-17) mg/dL Creatinine 0.72 (0.52-1.04) mg/dL Est GFR (CKD-EPI)AfAm >90 (>60 ml/min/1.73 sqM) Est GFR (CKD-EPI)NonAf >90 (>60 ml/min/1.73 sqM) Glucose 96 (74-99) mg/dL Calcium 9.6 (8.4-10.2) mg/dL Total Bilirubin 0.5 (0.2-1.3) mg/dL AST 26 (14-36) U/L ALT 25 (4-34) U/L Alkaline Phosphatase 75 (38-126) U/L Total Protein 6.8 (6.3-8.2) g/dL Albumin 4.2 (3.5-5.0) g/dL Urine Color Light Yellow Urine Appearance Cloudy H (Clear) Urine pH 6.0 (5.0-8.0) Ur Specific [place] 1.013 (1.001-1.035) Urine Protein Negative (Negative) Urine Glucose (UA) Negative (Negative) Urine Ketones Negative (Negative) Urine Blood Negative (Negative) Urine Nitrite Negative (Negative) Urine Bilirubin Negative (Negative) Urine Urobilinogen <2.0 (<2.0) mg/dL Ur Leukocyte Esterase Negative (Negative) Urine RBC 2 (0-5) /hpf Urine WBC 4 (0-5) /hpf Ur Squamous Epith Cells 17 H (0-4) /hpf Amorphous Sediment Occasional H (None) /hpf Urine Mucus Rare H (None) /hpf Urine HCG, Qual (Not Detectd) 05/08/20 Range/Units 15:14 WBC (3.8-10.6) k/uL RBC (3.80-5.40) m/uL Hgb (11.4-16.0) gm/dL Hct (34.0-46.0) % MCV (80.0-100.0) fL MCH (25.0-35.0) pg MCHC (31.0-37.0) g/dL RDW (11.5-15.5) % Plt Count (150-450) k/uL Neutrophils % % Lymphocytes % % Monocytes % % Eosinophils % % Basophils % % Neutrophils # (1.3-7.7) k/uL Lymphocytes # (1.0-4.8) k/uL Monocytes # (0-1.0) k/uL Eosinophils # (0-0.7) k/uL Basophils # (0-0.2) k/uL Sodium (137-145) mmol/L Potassium (3.5-5.1) mmol/L Chloride (98-107) mmol/L Carbon Dioxide (22-30) mmol/L Anion Gap mmol/L BUN (7-17) mg/dL Creatinine (0.52-1.04) mg/dL Est GFR (CKD-EPI)AfAm (>60 ml/min/1.73 sqM) Est GFR (CKD-EPI)NonAf (>60 ml/min/1.73 sqM) Glucose (74-99) mg/dL Calcium (8.4-10.2) mg/dL Total Bilirubin (0.2-1.3) mg/dL AST (14-36) U/L ALT (4-34) U/L Alkaline Phosphatase (38-126) U/L Total Protein (6.3-8.2) g/dL Albumin (3.5-5.0) g/dL Urine Color Urine Appearance (Clear) Urine pH (5.0-8.0) Ur Specific [place] (1.001-1.035) Urine Protein (Negative) Urine Glucose (UA) (Negative) Urine Ketones (Negative) Urine Blood (Negative) Urine Nitrite (Negative) Urine Bilirubin (Negative) Urine Urobilinogen (<2.0) mg/dL Ur Leukocyte Esterase (Negative) Urine RBC (0-5) /hpf Urine WBC (0-5) /hpf Ur Squamous Epith Cells (0-4) /hpf Amorphous Sediment (None) /hpf Urine Mucus (None) /hpf Urine HCG, Qual Not Detected (Not Detectd) Disposition Clinical Impression: Abdominal pain Disposition: HOME SELF-CARE Condition: Stable Instructions (If sedation given, give patient instructions): Abdominal Pain (ED), Hysterectomy (DC), Laparoscopic Hysterectomy (DC), Myomectomy (DC) Additional Instructions: Please follow up with a design tech. Return to emergency department if symptoms worsen. Is patient prescribed a controlled substance at d/c from ED?: No Referrals: Bi Bass MD [Primary Care Provider] - 1-2 days Nando Preston DO [Doctor of Osteopathic Medicine] - 1-2 days Antonietta Stafford MD [STAFF PHYSICIAN] - 1-2 days Mary Kate Perez DO [Doctor of Osteopathic Medicine] - 1-2 days Time of Disposition: 16:09
[2020-05-08] MEDS ORDERED: KETOROLAC 30 MG/ML 1 ML VIAL IVP STA (14:42)
[2020-05-08] MEDS ORDERED: SODIUM CHLORIDE 0.9% 1,000 ML IV STA (14:42)
[2020-05-08] MEDS ORDERED: ONDANSETRON 4 MG/2 ML VIAL IVP STA (14:42)
[2020-05-08 15:26] LABS: Basophils # (A) 0.2 k/uL (0-0.2); Basophils % (A) 2 %; Eosinophils # (A) 0.3 k/uL (0-0.7); Eosinophils % (A) 2 %; HCT 43.7 % (34.0-46.0); HGB 14.6 gm/dL (11.4-16.0); Lymphocytes # (A) 3.1 k/uL (1.0-4.8); Lymphocytes % (A) 24 %; MCH 32.1 pg (25.0-35.0); MCHC 33.4 g/dL (31.0-37.0); MCV 96.2 fL (80.0-100.0); Monocytes # (A) 0.6 k/uL (0-1.0); Monocytes % (A) 4 %; Neutrophils # (A) 8.7 k/uL (1.3-7.7); Neutrophils % (A) 67 %; Platelet Count 360 k/uL (150-450); RBC 4.54 m/uL (3.80-5.40); WBC 12.9 k/uL (3.8-10.6)
[2020-05-08 15:29] LABS: Amorphous Sediment,Urine Occasional /hpf; Appearance,Urine Cloudy (Clear); Bilirubin,Urine Negative (Negative); Blood,Urine Negative (Negative); Color,Urine Light Yellow; Glucose,Urine (UA) Negative (Negative); Ketones,Urine Negative (Negative); Leukocyte Esterase,Urine Negative (Negative); Mucus,Urine Rare /hpf; Nitrite,Urine Negative (Negative); Protein,Urine Negative (Negative); RBC,Urine 2 /hpf (0-5); Specific Gravity,Urine 1.013 (1.001-1.035); Squamous Epithelial Cell,Urine 17 /hpf (0-4); Urobilinogen,Urine <2.0 mg/dL (<2.0); WBC,Urine 4 /hpf (0-5)
[2020-05-08 15:34] LABS: ALT 25 U/L (4-34); AST 26 U/L (14-36); African American GFR (CKD) >90 (>60 ml/min/1.73 sqM); Albumin 4.2 g/dL (3.5-5.0); Alkaline Phosphatase 75 U/L (38-126); Anion Gap 7 mmol/L; Blood Urea Nitrogen 15 mg/dL (7-17); Calcium 9.6 mg/dL (8.4-10.2); Carbon Dioxide 26 mmol/L (22-30); Chloride 104 mmol/L (98-107); Glucose 96 mg/dL (74-99); Non-African American GFR(CKD) >90 (>60 ml/min/1.73 sqM); Potassium 3.9 mmol/L (3.5-5.1); Sodium 137 mmol/L (137-145); Total Bilirubin 0.5 mg/dL (0.2-1.3); Total Protein 6.8 g/dL (6.3-8.2)
[2020-05-08 15:40] VITALS: RESP 18
[2020-05-08] MEDS ORDERED: MORPHINE SULFATE 4 MG/ML SYRINGE IVP STA (15:51)
[2020-05-08 17:01] VITALS: BP 110/79; PULSE 89; TEMP 98.3
== END 2020-05-08 17:00 | disposition home or self-care (01) ==
LOC: EC 14:13
DX: R10.9 Unspecified abdominal pain (principal); M45.9 Ankylosing spondylitis of unspecified sites in spine; N89.8 Other specified noninflammatory disorders of vagina; N85.2 Hypertrophy of uterus; F41.9 Anxiety disorder, unspecified; F32.9 Major depressive disorder, single episode, unspecified; J44.9 Chronic obstructive pulmonary disease, unspecified; M19.90 Unspecified osteoarthritis, unspecified site; Z79.51 Long term (current) use of inhaled steroids; Z79.899 Other long term (current) drug therapy; F17.200 Nicotine dependence, unspecified, uncomplicated; Z90.89 Acquired absence of other organs
CPT/HCPCS: 36415; 80053; 85025; 81001; 81025; 87808; 87491; 87591; 99284; 96374; 96375 ×2; 96361; J2270; J2405; J1885

== ENCOUNTER → 2020-05-29 | Outpatient (CLI) | payer MEDICARE, OTHER ==
--- NOTE | 2020-05-29 15:43 | US ---
EXAMINATION TYPE: US pelvis complete transvag DATE OF EXAM: 05/29/2020 COMPARISON: CT 04/23/2020 CLINICAL HISTORY: D25.9 uterine fibroids. TECHNIQUE: . Transabdominal sonographic images of the pelvis were acquired. Transvaginal sonographi c images were medically necessary to better assess the following anatomy: Uterus Date of LMP: 05/26/2020 EXAM MEASUREMENTS: Uterus: 7.4 x 4.2 x 6.0 cm Endometrial Stripe: 0.5 cm Right Ovary: 2.8 x 1.5 x 1.3 cm Left Ovary: 2.2 x 1.9 x 1.8 cm 1. Uterus: Retroverted Two fibroids visualized, largest is pedunculated measuring 4.1 x 4.4 x 5.2 cm 2. Endometrium: wnl 3. Right Ovary: wnl 4. Left Ovary: wnl 5. Bilateral Adnexa: wnl 6. Posterior cul-de-sac: wnl IMPRESSION: Leiomyomatous change of the uterus as noted.
== END | disposition home or self-care (01) ==
LOC: RADUSWWP 14:37
PROVIDERS: ATTEND Obstetrics & Gynecology
DX: D25.9 Leiomyoma of uterus, unspecified (principal)
CPT/HCPCS: 76830; 76856

== ENCOUNTER → 2020-06-19 | Outpatient (CLI) | payer MEDICARE, OTHER ==
--- NOTE | 2020-06-19 14:45 | US ---
EXAMINATION TYPE: US abdomen complete DATE OF EXAM: 06/19/2020 COMPARISON: CT 04/23/2020 CLINICAL HISTORY: R14.0 ABD DISTENSION. Difficult exam due to overlying bowel gas EXAM MEASUREMENTS: Liver Length: 17.3 cm Gallbladder Wall: 0.2 cm CBD: 0.3 cm Spleen: 11.4 cm Right Kidney: 9.8 x 4.0 x 4.2 cm Left Kidney: 9.4 x 3.5 x 4.0 cm Pancreas: Tail obscured by overlying bowel gas, visualized portions obscured by bowel gas Liver: Coarse which can be related to mild fatty infiltration. Gallbladder: wnl Evidence for sonographic Lane's sign: No CBD: wnl as visualized, distal portion obscured by bowel gas Spleen: wnl Right Kidney: No hydronephrosis or masses seen Left Kidney: No hydronephrosis or masses seen Upper IVC: wnl Abd Aorta: wnl IMPRESSION: 1. Mild fatty infiltration liver. Hepatomegaly is present.
== END | disposition home or self-care (01) ==
LOC: RADUSWWP 08:53
PROVIDERS: ATTEND Family Medicine
DX: K76.0 Fatty (change of) liver, not elsewhere classified (principal); R16.0 Hepatomegaly, not elsewhere classified
CPT/HCPCS: 76700

== ENCOUNTER → 2021-03-09 | Outpatient (CLI) | payer MEDICARE, OTHER ==
--- NOTE | 2021-03-09 15:57 | US ---
EXAMINATION TYPE: US pelvic complete DATE OF EXAM: 03/09/2021 COMPARISON: US 05/29/20, CT 04/23/20 CLINICAL HISTORY: R10.2 chronic pelvic pain. TECHNIQUE:Transabdominal sonographic images of the pelvis were acquired. Date of LMP: 02/28/21 EXAM MEASUREMENTS: Uterus: 10.8 x 5.4 x 4.2 cm Endometrial Stripe: 0.7 cm Right Ovary: 2.6 x 2.1 x 1.4 cm Left Ovary: 2.5 x 2.0 x 1.6 cm 1. Uterus: Retroverted myomatous 2. Endometrium: wnl 3. Right Ovary: wnl 4. Left Ovary: wnl 5. Bilateral Adnexa: wnl 6. Posterior cul-de-sac: wnl 2 largest fibroids: 1) 2.8 x 2.5 x 2.0 cm 2) 3.7 x 2.6 x 2.5 cm Cervical cyst = 1.0 x 0.9 x 0.8 cm IMPRESSION: 1. Uterine fibroids
== END | disposition home or self-care (01) ==
LOC: RADUSWWP 14:57
PROVIDERS: ATTEND Family Medicine
DX: D25.9 Leiomyoma of uterus, unspecified (principal); N88.8 Other specified noninflammatory disorders of cervix uteri
CPT/HCPCS: 76856

== ENCOUNTER → 2021-07-05 | Outpatient (CLI) | payer MEDICARE ==
[2021-07-05 15:10] LABS: Basophils # (A) 0.2 k/uL (0-0.2); Basophils % (A) 1 %; Eosinophils # (A) 0.4 k/uL (0-0.7); Eosinophils % (A) 3 %; HCT 43.9 % (34.0-46.0); HGB 15.1 gm/dL (11.4-16.0); Lymphocytes # (A) 2.9 k/uL (1.0-4.8); Lymphocytes % (A) 24 %; MCH 32.9 pg (25.0-35.0); MCHC 34.3 g/dL (31.0-37.0); MCV 95.9 fL (80.0-100.0); Mean Platelet Volume 7.5; Monocytes # (A) 0.5 k/uL (0-1.0); Monocytes % (A) 4 %; Neutrophils # (A) 7.6 k/uL (1.3-7.7); Neutrophils % (A) 65 %; Platelet Count 339 k/uL (150-450); RBC 4.58 m/uL (3.80-5.40); RDW 13.3 % (11.5-15.5); WBC 11.8 k/uL (3.8-10.6)
[2021-07-05 15:18] LABS: African American GFR (CKD) >90 (>60 ml/min/1.73 sqM); Anion Gap 10 mmol/L; Blood Urea Nitrogen 12 mg/dL (7-17); Calcium 9.5 mg/dL (8.4-10.2); Carbon Dioxide 23 mmol/L (22-30); Chloride 106 mmol/L (98-107); Glucose 124 mg/dL (74-99); Non-African American GFR(CKD) 84 (>60 ml/min/1.73 sqM); Potassium 4.2 mmol/L (3.5-5.1); Sodium 139 mmol/L (137-145)
== END | disposition home or self-care (01) ==
LOC: LABPAT 14:18
PROVIDERS: ATTEND Obstetrics & Gynecology
DX: Z01.812 Encounter for preprocedural laboratory examination (principal)
CPT/HCPCS: 36415; 80048; 85025

== ENCOUNTER 2021-07-15 06:54 | Day surgery (SDC) | payer MEDICARE, OTHER ==
[2021-07-14 09:15] VITALS: BMI 39.1
[2021-07-15] MEDS ORDERED: DEXAMETHASONE SOD PHOSPHATE 4 MG/ML 1 ML VIAL IV ONE (07:26)
[2021-07-15] MEDS ORDERED: ONDANSETRON 4 MG/2 ML VIAL IVP ONE (07:26)
[2021-07-15] MEDS ORDERED: LACTATED RINGERS 1,000 ML IV SCH (07:26)
[2021-07-15] MEDS ORDERED: LACTATED RINGERS 1,000 ML IV ONE ×3 (08:14→10:18)
[2021-07-15] MEDS ORDERED: MIDAZOLAM 2 MG/2 ML VIAL IVP ONE (08:17)
[2021-07-15] MEDS: fentaNYL (PF) 50 MCG/ML 2 ML AMP IVP ONE ×3 (08:17→11:31)
--- NOTE | 2021-07-15 08:40 | P.ANPRN ---
Procedure Note - Anesthesia - Nerve Block Performed Bilateral Erector Spinae Single Time Out Performed: Yes ([id number]) Date of Procedure: 07/15/21 Procedure Start Time: 08:17 Procedure Stop Time: :23 Location of Patient: PreOp Indication: Acute Post-Operative Pain, Requested by Surgeon Specifically requested for management of pain by DrJoesph: Nando Preston Sedation Type: Sedate with meaningful contact maintained Preparation: Sterile Prep Position: Prone Catheter: None Needle Types: [place]unk Needle Gauge: 21 Ultrasound used to visualize needle placement: Yes Ultrasound used to observe medication spread: Yes Injectate: 0.5% Ropivacaine (see comment for volume) (15cc + 15cc NACL PF each side) Blood Aspirated: No Pain Paresthesia on Injection Noted: No Resistance on Injection: Normal Image Stored and Saved: Yes Events: Uneventful and Well Tolerated
[2021-07-15] MEDS ORDERED: PROPOFOL 10 MG/ML 20 ML VIAL IV ONE (08:58)
[2021-07-15] MEDS ORDERED: SUCCINYLCHOLINE CHLORIDE 100 MG/5 ML SYR IV ONE (08:58)
[2021-07-15] MEDS ORDERED: KETAMINE 10 MG/ML 20 ML VIAL ONE (08:58)
[2021-07-15] MEDS ORDERED: SODIUM CHLORIDE 0.9% (PF) 10 ML VIAL ONE (08:58)
[2021-07-15] MEDS ORDERED: fentaNYL (PF) 50 MCG/ML 2 ML AMP ONE (08:58)
[2021-07-15] MEDS ORDERED: NEOSTIGMINE 1 MG/ML 10 ML VIAL ONE (08:58)
[2021-07-15] MEDS ORDERED: HYDROmorphone (PF) 1 MG/ML ONE (08:58)
[2021-07-15] MEDS ORDERED: GLYCOPYRROLATE 0.2 MG/ML 2 ML VIAL ONE (08:58)
[2021-07-15] MEDS ORDERED: MIDAZOLAM 2 MG/2 ML VIAL ONE (08:58)
[2021-07-15] MEDS ORDERED: LIDOCAINE 1% INJ 10MG/ML (20 ML MDV) ONE (08:58)
[2021-07-15] MEDS ORDERED: ROCURONIUM 10 MG/ML (5 ML VIAL) IV ONE (08:58)
[2021-07-15] MEDS ORDERED: ROPIVACAINE 5 MG/ML 30 ML VIAL ONE (08:58)
[2021-07-15] MEDS ORDERED: BUPIVACAINE (PF) 0.5% 30 ML VIAL SQ ONE (09:38)
[2021-07-15] MEDS ORDERED: SIMETHICONE 80 MG CHEWABLE PO PRN (10:45)
[2021-07-15] MEDS ORDERED: ONDANSETRON 4 MG/2 ML VIAL IVP PRN (10:45)
[2021-07-15] MEDS ORDERED: ALBUTEROL NEBULIZED 2.5 MG/3 ML INHALATION PRN (10:47)
[2021-07-15] MEDS ORDERED: ALBUTEROL NEBULIZED 2.5 MG/3 ML INHALATION ONE (11:05)
[2021-07-15] MEDS: HYDROmorphone 0.5 MG/0.5 ML SYRINGE IVP PRN ×2 (11:11→11:17)
[2021-07-15] MEDS: KETOROLAC 15 MG/ML 1 ML VIAL IVP PRN ×2 (11:11→20:39)
[2021-07-15] MEDS ORDERED: diphenhydrAMINE 50 MG/ML 1 ML VIAL ONE (11:25)
[2021-07-15] MEDS ORDERED: diphenhydrAMINE 50 MG/ML 1 ML VIAL IVP ONE (11:27)
--- NOTE | 2021-07-15 11:40 | HP ---
HISTORY AND PHYSICAL PREOPERATIVE DIAGNOSIS: Fibroid uterus. HISTORY OF PRESENT ILLNESS: This 41-year-old female with history of heavy bleeding and fibroid uterus is requesting definitive therapy. She is scheduled for a robotic-assisted laparoscopic hysterectomy with bilateral salpingectomy, possible MARIE and possible BSO. Risks/benefits/alternatives of this procedure were reviewed with the patient in detail. All questions were answered for her prior to proceeding to the operating room. Risks did include but were not limited to bleeding and infection, damage to bladder or bowel, vascular injuries, nerve injuries, bladder injuries and potential need for other surgery. MEDICAL HISTORY: Her medical history is significant for anxiety, GERD. PAST SURGICAL HISTORY: Appendectomy and prior D and C. PHYSICAL EXAMINATION: This is a well-developed, well-nourished female whose HEENT is unremarkable. HEART: Regular. LUNGS: Clear. Extremities without pain. ABDOMEN: Soft. Pelvic exam is otherwise unremarkable. ASSESSMENT: Fibroid uterus. PLAN: Robotic-assisted laparoscopic hysterectomy with bilateral salpingectomy, possible MARIE and possible BSO. MMODL / IJN: [id number] /
[2021-07-15] MEDS ORDERED: NICOTINE 21MG/24HR PATCH TRANSDERM STA (12:52)
[2021-07-15 14:23] VITALS: RESP 16
[2021-07-15] MEDS: oxyCODONE-APAP 10-325MG 1 EACH TAB PO PRN ×2 (16:24→22:38)
[2021-07-15] MEDS: ALPRAZolam 0.5 MG TAB PO PRN (20:39)
[2021-07-15] MEDS ORDERED: traZODone HCL 100 MG TAB PO SCH (21:00)
[2021-07-15] MEDS ORDERED: risperiDONE 1 MG TAB PO SCH (21:00)
[2021-07-16] MEDS ORDERED: IBUPROFEN 600 MG TAB PO PRN (05:35)
--- NOTE | 2021-07-16 08:41 | P.DS ---
Providers Expected date of discharge: 07/16/21 Attending physician: Nando Preston Primary care physician: Bi Bass MD Hospital Course: Patient seen and evaluated. She is doing very well postop day 1. She is ambulating, voiding and she is tolerating her diet. She is also passing flatus. She is requesting discharge home today. Vital signs are stable and she is afebrile. Heart regular, lungs clear, extremities are without pain. Abdomen soft incisions are clean dry and intact. Prescriptions for Motrin and Percocet were provided. She is directed to contact her primary care provider this morning before she is discharged and before she picks up her Percocet. She is uncertain if she has a pain contract but I did warn her that if she had a pain contract and the chose to cancel because she filled a prescription from me that that would limit her ability to get pain medicine in the future. She is aware and understands and will contact them as morning. If there is any questions or concerns certainly her primary care provider can call me and I can outline why pain pills were prescribed. He was aware that she was having hysterectomy. All the questions are answered for her at this time. She will follow up with me in 1 week. Patient Condition at Discharge: Good Plan - Discharge Summary Discharge Rx Participant: Yes New Discharge Prescriptions: New Ibuprofen [Motrin] 600 mg PO Q6HR PRN #30 tab PRN Reason: Pain oxyCODONE HCL/ACETAMINOPHEN [Percocet 10-325 mg] 1 tab PO Q6HR PRN 3 Days #12 tab PRN Reason: Pain No Action traZODone HCL 200 mg PO HS risperiDONE 3 mg PO HS Omeprazole [PriLOSEC] 40 mg PO DAILY ALPRAZolam [Xanax] 0.5 mg PO TID PRN PRN Reason: Anxiety Ergocalciferol (Vitamin D2) [Vitamin D2] 50,000 unit PO QMONTH Albuterol Inhaler (Mhu) [Ventolin Hfa Inhaler] 1 - 2 puff INHALATION RT-Q6H PRN PRN Reason: Dyspnea oxyCODONE HCL/ACETAMINOPHEN [Percocet 10-325 mg] 1 tab PO Q6HR PRN PRN Reason: Pain Discharge Medication List ALPRAZolam [Xanax] 0.5 mg PO TID PRN 08/29/18 [History] Ergocalciferol (Vitamin D2) [Vitamin D2] 50,000 unit PO QMONTH 08/29/18 [History] Omeprazole [PriLOSEC] 40 mg PO DAILY 08/29/18 [History] risperiDONE 3 mg PO HS 08/29/18 [History] traZODone HCL 200 mg PO HS 08/29/18 [History] Albuterol Inhaler (Mhu) [Ventolin Hfa Inhaler] 1 - 2 puff INHALATION RT-Q6H PRN 06/04/19 [History] oxyCODONE HCL/ACETAMINOPHEN [Percocet 10-325 mg] 1 tab PO Q6HR PRN 07/14/21 [History] Ibuprofen [Motrin] 600 mg PO Q6HR PRN #30 tab 07/16/21 [Rx] oxyCODONE HCL/ACETAMINOPHEN [Percocet 10-325 mg] 1 tab PO Q6HR PRN 3 Days #12 tab 07/16/21 [Rx] Follow up Appointment(s)/Referral(s): Nando Preston DO [Doctor of Osteopathic Medicine] - 1 Week Activity/Diet/Wound Care/Special Instructions: No heavy lifting, limit stairs and driving, and pelvic rest. If any high temperatures, heavy bleeding, or severe pain call my office Discharge Disposition: HOME SELF-CARE
[2021-07-16] MEDS ORDERED: PANTOPRAZOLE 40 MG TABLET PO SCH (09:00)
[2021-07-16] MEDS: ALPRAZolam 0.5 MG TAB PO PRN (09:08)
[2021-07-16] MEDS: oxyCODONE-APAP 10-325MG 1 EACH TAB PO PRN (09:08)
[2021-07-16 11:19] VITALS: BP 119/81; PULSE 81; TEMP 97.9
--- NOTE | 2021-08-04 17:12 | P.OP ---
Date of Procedure: 08/04/21 Preoperative Diagnosis: Fibroid uterus Postoperative Diagnosis: Same Procedure(s) Performed: Robotic-assisted laparoscopic hysterectomy with bilateral salpingectomy Anesthesia: JOSÉ MIGUEL Surgeon: Nando Preston Vice President Of Human Resources #1: Mary Kate Perez Pathology: other (Uterus, cervix and fallopian tubes) Condition: stable Disposition: floor Operative Findings: Pathology pending Description of Procedure: Patient was taken to the operating suite where a general anesthetic was found be adequate. She was prepped and draped in the normal sterile fashion and placed in the dorsal lithotomy position. Initially a speculum was inserted in the vagina and into lip cervix identified grasped single-toothed tenaculum. Cervix was sounded and cervix was measured and Lynne manipulator was then inserted without difficulty with sutures placed at 3 and 9 for assistance in removal. Once completed a full cath was placed and gloves were changed. Attention was then turned to the abdominal portion procedure where 2 mL of quarter percent Marcaine was injected periumbilically and through this injected anesthetic a 8 mm skin incision was made. Through this incision, under direct visualization with an optical trocar and sleeve the camera was inserted. Once peritoneal placement was assured patient was then placed placed in a steep Trendelenburg position of approximately 25 and 2 lateral ports were placed through 8 mm skin incisions and these were da Sheri ports. A fourth port and sleeve was then inserted between the left lateral and medial port 11/30/1971 incision. Once, was camera port was exchanged for robotic port and the robot was brought in and docked. Once fully docked a [place] and Metzenbaum scissors were used. At this point I did break scrub and go to the console. Observations pelvis were noted. Uterus was then elevated and tipped left-hand side and the left fallopian tube was excised by clamping and cauterizing through the mesosalpinx tissue and cutting it away. It was then removed from the operative field. Utero-ovarian ligament was identified cauterized and transected. Moving through the mesosalpinx to the round ligament tissues was cauterized and transected and then the rounding was cauterized transected. Anterior posterior leafs of the broad ligament were then fully developed and cauterization the uterine vascularity on the left-hand side was performed. Once this was completed bladder flap was identified and undermined with [place] and then incised with scissor. This was done across face uterus and the bladder was then bluntly dissected out of the operative field. Once completed the right side of the uterus was then developed similarly. At this point an anterior colpotomy was made following full lung up of the balloon in the Lynne manipulator. Following the couple around 3 and 60 the cervix was from the vaginal mucosa. Once this was completed and while cheating head to maintain excellent hemostasis uterus was pushed down and left in the vagina to maintain pneumoperitoneum. Once all pedicles were secured and there is no bleeding noted from the pedicles instruments were exchanged for a Johnny grasper and a make suture cut and the vaginal cuff was closed in a running fashion with 20V lock suture. Once this was completed pelvis was suction irrigated and incidents removed. Gas allowed to expel from the abdomen this [address] Perez close the incision subcuticularly with 4-0 Vicryl and at the same time I did a cystoscopy with good flow noted from both ureteral jets. Smith catheter was then replaced. Sponge, lap, needle counts were all correct 2. Patient was then taken to the recovery room in stable and satisfactory condition.
== END 2021-07-16 11:50 | disposition home or self-care (01) ==
LOC: OR 06:54 → 4FBP 10:58 → OR 07-16 11:50
PROVIDERS: ATTEND Obstetrics & Gynecology
DX: D25.1 Intramural leiomyoma of uterus (principal); K21.9 Gastro-esophageal reflux disease without esophagitis; N80.0 Endometriosis of uterus; Z86.018 Personal history of other benign neoplasm; Z90.49 Acquired absence of other specified parts of digestive tract; J44.9 Chronic obstructive pulmonary disease, unspecified; F17.200 Nicotine dependence, unspecified, uncomplicated; F32.9 Major depressive disorder, single episode, unspecified
CPT/HCPCS: 58571; 81025; 64999; 86900; 86901; 86850; 88307; S4990; J2250; J1200; J1100; J2710; J0690; J2405; J2001; J3010; J1170 ×2; J2795; J1885; J0330; J2704

== ENCOUNTER 2023-03-01 10:12 | Emergency (ER) | payer MEDICARE, OTHER ==
[2023-03-01 10:27] VITALS: BP 129/88; PULSE 99; RESP 18; TEMP 97.8
[2023-03-01] MEDS ORDERED: KETOROLAC 15 MG/ML 1 ML VIAL IM STA (10:37)
--- NOTE | 2023-03-01 10:39 | ED ---
ENT HPI - General Chief complaint: Dental/Oral Stated complaint: face swollen Time Seen by Provider: 03/01/23 10:28 Source: patient Mode of arrival: ambulatory Limitations: no limitations - History of Present Illness Initial comments: 43-year-old female presenting to the ER with the chief complaint of dental pain and facial swelling. She states 2 days ago started to treat his pain of her left upper tooth. Additionally states yesterday she started to develop some swelling around her left eye. Denies vision changes. Denies eye pain. Not a contact lens wearer. Denies recent injury to this area. No recent antibiotic use. For the pain patient has been using ibuprofen 200 mg with minimal relief. No difficulty swallowing or difficulty breathing. No other complaints. - Related Data Home Medications Medication Instructions Recorded Confirmed ALPRAZolam [Xanax] 0.5 mg PO TID PRN 08/29/18 07/14/21 Ergocalciferol (Vitamin D2) 50,000 unit PO QMONTH 08/29/18 07/14/21 [Vitamin D2] Omeprazole [PriLOSEC] 40 mg PO DAILY 08/29/18 07/14/21 risperiDONE 3 mg PO HS 08/29/18 07/14/21 traZODone HCL 200 mg PO HS 08/29/18 07/14/21 Albuterol Inhaler [Ventolin Hfa 1 - 2 puff INHALATION RT-Q6H PRN 06/04/19 07/14/21 Inhaler] oxyCODONE HCL/ACETAMINOPHEN 1 tab PO Q6HR PRN 07/14/21 07/14/21 [Percocet 10-325 mg] Previous Rx's Medication Instructions Recorded Ibuprofen [Motrin] 600 mg PO Q6HR PRN #30 tab 07/16/21 oxyCODONE HCL/ACETAMINOPHEN 1 tab PO Q6HR PRN 3 Days #12 tab 07/16/21 [Percocet 10-325 mg] Acetaminophen [Tylenol Extra 500 mg PO Q6HR PRN #40 tablet 03/01/23 Strength] Amoxic-Pot Clav 875-125Mg 1 tab PO Q12HR 7 Days #14 tab 03/01/23 [Augmentin 875-125] Allergies Allergy/AdvReac Type Severity Reaction Status Date / Time No Known Allergies Allergy Verified 03/01/23 10:27 Review of Systems ROS Statement: Those systems with pertinent positive or pertinent negative responses have been documented in the HPI. ROS Other: All systems not noted in ROS Statement are negative. Past Medical History Past Medical History: COPD, Osteoarthritis (OA) Additional Past Medical History / Comment(s): scoliosis, djd, ankylosing spondylitis, heart murmur, uterine fibroids History of Any Multi-Drug Resistant Organisms: None Reported Past Surgical History: Appendectomy, Hysterectomy Additional Past Surgical History / Comment(s): D & C Past Anesthesia/Blood Transfusion Reactions: No Reported Reaction Past Psychological History: Anxiety, Depression Smoking Status: Current every day smoker Past Alcohol Use History: Occasional Past Drug Use History: Marijuana - Past Family History Mother Family Medical History: Cancer Additional Family Medical History / Comment(s): breast cancer General Exam Limitations: no limitations General appearance: alert, in no apparent distress Head exam: Present: atraumatic, normocephalic Eye exam: Present: normal appearance, periorbital swelling (Left with some warmth no erythema. Minmal TTP) ENT exam: Present: mucous membranes moist, other (Poor dentition, multiple dental caries. Notable cesilia of left upper lateral incisor. No significant simple mandibular swelling. No necrosis of the gingiva.) Neck exam: Present: lymphadenopathy Respiratory exam: Present: normal lung sounds bilaterally Cardiovascular Exam: Present: regular rate, normal rhythm Course Vital Signs 03/01/23 10:24 Temperature 97.8 F Pulse Rate 99 Respiratory 18 Rate Blood Pressure 129/88 O2 Sat by Pulse 96 Oximetry Medical Decision Making - Medical Decision Making Was pt. sent in by a medical professional or institution (, PA, BIG DATA ADMIN, urgent care, hospital, or custodial...) When possible be specific @ -No Did you speak to anyone other than the patient for history (EMS, parent, family, police, friend...)? What history was obtained from this source @ -No Did you review nursing and triage notes (agree or disagree)? Why? @ -I reviewed and agree with nursing and triage notes Were old charts reviewed (outside hosp., previous admission, EMS record, old EKG, old radiological studies, urgent care reports/EKG's, custodial records)? Report findings @ -No old charts were reviewed Differential Diagnosis (chest pain, altered mental status, abdominal pain women, abdominal pain men, vaginal bleeding, weakness, fever, dyspnea, syncope, headache, dizziness, GI bleed, back pain, seizure, CVA, palpatations, mental health, musculoskeletal)? @ -Cm angina, acute necrotizing ulcerative gingivitis, periorbital cellulitis, orbital cellulitis. EKG interpreted by me (3pts min.). @ -As above X-rays interpreted by me (1pt min.). @ -None done CT interpreted by me (1pt min.). @ -None done U/S interpreted by me (1pt. min.). @ -None done What testing was considered but not performed or refused? (CT, X-rays, U/S, labs)? Why? @ -None What meds were considered but not given or refused? Why? @ -None Did you discuss the management of the patient with other professionals (professionals i.e. , PA, BIG DATA ADMIN, lab, RT, psych nurse, social work specialist, plaster lather, teacher, chief operating officer, hospice case manager)? Give summary @ -No Was smoking cessation discussed for >3mins.? @ -No Was critical care preformed (if so, how long)? @ -No Were there social determinants of health that impacted care today? How? (Homelessness, low income, unemployed, alcoholism, drug addiction, transportation, low edu. Level, literacy, decrease access to med. care, senior care, rehab)? @ -No Was there de-escalation of care discussed even if they declined (Discuss DNR or withdrawal of care, Hospice)? DNR status @ -No What co-morbidities impacted this encounter? (DM, HTN, Smoking, COPD, CAD, Cancer, CVA, ARF, Chemo, Hep., AIDS, mental health diagnosis, sleep apnea, morbid obesity)? @ -None Was patient admitted / discharged? Hospital course, mention meds given and route, prescriptions, significant lab abnormalities, going to OR and other pertinent info. @ -Patient discharged, given Toradol with improvement of pain and provided prescription for Augmentin and Tylenol. Undiagnosed new problem with uncertain prognosis? @ -No Drug Therapy requiring intensive monitoring for toxicity (Heparin, Nitro, Insulin, Cardizem)? @ -No Were any procedures done? @ -No Diagnosis/symptom? @ -Dental pain Acute, or Chronic, or Acute on Chronic? @ -Acute Uncomplicated (without systemic symptoms) or Complicated (systemic symptoms)? @ -Uncomplicated Side effects of treatment? @ -No Exacerbation, Progression, or Severe Exacerbation? @ -No Poses a threat to life or bodily function? How? (Chest pain, [place], [place], pneumonia, PE, COPD, DKA, ARF, appy, cholecystitis, CVA, Diverticulitis, Homicidal, Suicidal, threat to staff... and all critical care pts) @ -No Disposition Clinical Impression: Pain due to dental caries Disposition: HOME SELF-CARE Condition: Good Instructions (If sedation given, give patient instructions): Toothache (ED) Additional Instructions: Please return to the Emergency Department if symptoms worsen or any other concerns. Prescriptions: Amoxic-Pot Clav 875-125Mg [Augmentin 875-125] 1 tab PO Q12HR 7 Days #14 tab Acetaminophen [Tylenol Extra Strength] 500 mg PO Q6HR PRN #40 tablet PRN Reason: Pain Is patient prescribed a controlled substance at d/c from ED?: No Referrals: None,Stated [Primary Care Provider] - 1-2 days Time of Disposition: 11:02
== END 2023-03-01 11:40 | disposition home or self-care (01) ==
LOC: EC 10:12
DX: K02.9 Dental caries, unspecified (principal); J44.9 Chronic obstructive pulmonary disease, unspecified; M19.90 Unspecified osteoarthritis, unspecified site; F32.A Depression, unspecified; F41.9 Anxiety disorder, unspecified; F12.90 Cannabis use, unspecified, uncomplicated; F17.200 Nicotine dependence, unspecified, uncomplicated; Z79.899 Other long term (current) drug therapy
CPT/HCPCS: 99283; 96372; J1885

== ENCOUNTER 2023-11-08 11:23 | Emergency (ER) | payer MEDICARE, OTHER ==
[2023-11-08 11:44] VITALS: TEMP 97.9
--- NOTE | 2023-11-08 12:20 | ED ---
General Adult HPI - General Chief complaint: Upper Respiratory Infection Stated complaint: Loss of appetite, COPD, general pain Time Seen by Provider: 11/08/23 11:38 Source: patient, RN notes reviewed, old records reviewed Mode of arrival: ambulatory Limitations: no limitations - History of Present Illness Initial comments: 43-year-old female presenting for evaluation of cough, upper respiratory symptoms. Symptoms have been present for the past several days. She reports poor appetite and mostly nonproductive cough. No fever. No central chest pain. She reports diffuse generalized pain which she believes is secondary to her ankylosing spondylitis. She does not currently have a primary care provider. - Related Data Home Medications Medication Instructions Recorded Confirmed ALPRAZolam [Xanax] 0.5 mg PO TID PRN 08/29/18 07/14/21 Ergocalciferol (Vitamin D2) 50,000 unit PO QMONTH 08/29/18 07/14/21 [Vitamin D2] Omeprazole [PriLOSEC] 40 mg PO DAILY 08/29/18 07/14/21 risperiDONE 3 mg PO HS 08/29/18 07/14/21 traZODone HCL 200 mg PO HS 08/29/18 07/14/21 Albuterol Inhaler [Ventolin Hfa 1 - 2 puff INHALATION RT-Q6H PRN 06/04/19 07/14/21 Inhaler] oxyCODONE HCL/ACETAMINOPHEN 1 tab PO Q6HR PRN 07/14/21 07/14/21 [Percocet 10-325 mg] Previous Rx's Medication Instructions Recorded Ibuprofen [Motrin] 600 mg PO Q6HR PRN #30 tab 07/16/21 oxyCODONE HCL/ACETAMINOPHEN 1 tab PO Q6HR PRN 3 Days #12 tab 07/16/21 [Percocet 10-325 mg] Acetaminophen [Tylenol Extra 500 mg PO Q6HR PRN #40 tablet 03/01/23 Strength] Amoxic-Pot Clav 875-125Mg 1 tab PO Q12HR 7 Days #14 tab 03/01/23 [Augmentin 875-125] Albuterol Inhaler [Ventolin Hfa 1 - 2 puff INHALATION Q4HR PRN #1 11/08/23 Inhaler] each Oseltamivir [Tamiflu] 75 mg PO Q12HR #10 cap 11/08/23 methylPREDNISolone Dose Pack 4 mg PO DIRECTED #21 packet 11/08/23 [Medrol Dose Pack] Allergies Allergy/AdvReac Type Severity Reaction Status Date / Time No Known Allergies Allergy Verified 11/08/23 11:35 Review of Systems ROS Statement: Those systems with pertinent positive or pertinent negative responses have been documented in the HPI. ROS Other: All systems not noted in ROS Statement are negative. Past Medical History Past Medical History: COPD, Osteoarthritis (OA) Additional Past Medical History / Comment(s): scoliosis, djd, ankylosing spondylitis, heart murmur, uterine fibroids History of Any Multi-Drug Resistant Organisms: None Reported Past Surgical History: Appendectomy, Hysterectomy Additional Past Surgical History / Comment(s): D & C Past Anesthesia/Blood Transfusion Reactions: No Reported Reaction Past Psychological History: Anxiety, Depression Smoking Status: Current every day smoker Past Alcohol Use History: Occasional Past Drug Use History: Marijuana - Past Family History Mother Family Medical History: Cancer Additional Family Medical History / Comment(s): breast cancer General Exam Limitations: no limitations General appearance: alert, in no apparent distress Head exam: Present: atraumatic, normocephalic Eye exam: Present: normal appearance, PERRL ENT exam: Present: normal exam Neck exam: Present: normal inspection. Absent: tenderness, meningismus Respiratory exam: Present: decreased breath sounds. Absent: respiratory distress Cardiovascular Exam: Present: regular rate, normal rhythm GI/Abdominal exam: Present: soft. Absent: distended, tenderness, guarding Extremities exam: Present: normal inspection, normal capillary refill Neurological exam: Present: alert, oriented X3, CN II-XII intact. Absent: motor sensory deficit Skin exam: Present: warm, dry, intact Course Vital Signs 11/08/23 11/08/23 11/08/23 11:32 11:45 12:46 Temperature 97.9 F Pulse Rate 99 95 Respiratory 18 20 18 Rate Blood Pressure 122/77 101/70 O2 Sat by Pulse 98 98 Oximetry Medical Decision Making - Medical Decision Making Was pt. sent in by a medical professional or institution (, PA, PHYSICAL THERAPY MANAGER, urgent care, hospital, or senior living...) When possible be specific @ -No Did you speak to anyone other than the patient for history (EMS, parent, family, police, friend...)? What history was obtained from this source @ -No Did you review nursing and triage notes (agree or disagree)? Why? @ -I reviewed and agree with nursing and triage notes Were old charts reviewed (outside hosp., previous admission, EMS record, old EKG, old radiological studies, urgent care reports/EKG's, senior living records)? Report findings @ -No old charts were reviewed Differential Diagnosis (chest pain, altered mental status, abdominal pain women, abdominal pain men, vaginal bleeding, weakness, fever, dyspnea, syncope, headache, dizziness, GI bleed, back pain, seizure, CVA, palpatations, mental health, musculoskeletal)? @Differential Dyspnea: Coronary syndrome, arrhythmia, tamponade, asthma, COPD, pulmonary embolism, pneumonia, pneumothorax, pulmonary effusion, anaphylaxis, diabetic ketoacidosis, flailed chest, pulmonary contusion, diaphragmatic rupture, anemia, neuromuscular, this is not meant to be an all-inclusive list. EKG interpreted by me (3pts min.). @ -Sinus rhythm rate of 92 ND interval 103, QRS duration 75, QTc [address] segment changes. X-rays interpreted by me (1pt min.). @ -Chest x-ray negative for acute cardiopulmonary disease CT interpreted by me (1pt min.). @ -None done U/S interpreted by me (1pt. min.). @ -None done What testing was considered but not performed or refused? (CT, X-rays, U/S, labs)? Why? @ -None What meds were considered but not given or refused? Why? @ -None Did you discuss the management of the patient with other professionals (professionals i.e. , PA, PHYSICAL THERAPY MANAGER, lab, RT, psych nurse, social security benefits interviewer, leak operator paraffin plant, teacher, air defence officer, case hardener)? Give summary @ -No Was smoking cessation discussed for >3mins.? @ -No Was critical care preformed (if so, how long)? @ -No Were there social determinants of health that impacted care today? How? (Homelessness, low income, unemployed, alcoholism, drug addiction, transportation, low edu. Level, literacy, decrease access to med. care, long-term, rehab)? @ -No Was there de-escalation of care discussed even if they declined (Discuss DNR or withdrawal of care, Hospice)? DNR status @ -No What co-morbidities impacted this encounter? (DM, HTN, Smoking, COPD, CAD, Cancer, CVA, ARF, Chemo, Hep., AIDS, mental health diagnosis, sleep apnea, morbid obesity)? @ -COPD Was patient admitted / discharged? Hospital course, mention meds given and route, prescriptions, significant lab abnormalities, going to OR and other pertinent info. @ -43-year-old female with cough, history of COPD. Patient has headache and nausea as well. Diffuse body aches. She does test positive for influenza. She will be treated with Tamiflu given her risk factors. Laboratory testing is otherwise unremarkable. Chest x-ray is clear. Undiagnosed new problem with uncertain prognosis? @ -No Drug Therapy requiring intensive monitoring for toxicity (Heparin, Nitro, Insulin, Cardizem)? @ -No Were any procedures done? @ -No Diagnosis/symptom? @ -[Influenza Acute, or Chronic, or Acute on Chronic? @ -Acute Uncomplicated (without systemic symptoms) or Complicated (systemic symptoms)? @ -Default Side effects of treatment? @ -No Exacerbation, Progression, or Severe Exacerbation? @ -No Poses a threat to life or bodily function? How? (Chest pain, [place], [place], pneumonia, PE, COPD, DKA, ARF, appy, cholecystitis, CVA, Diverticulitis, Homicidal, Suicidal, threat to staff... and all critical care pts) @ -Low risk at this time - Lab Data Result diagrams: 11/08/23 12:02 11/08/23 12:02 Lab Results 11/08/23 11/08/23 11/08/23 Range/Units 12:02 12:02 12:02 WBC 12.7 H (3.8-10.6) k/uL RBC 4.23 (3.80-5.40) m/uL Hgb 14.0 (11.4-16.0) gm/dL Hct 40.7 (34.0-46.0) % MCV 96.1 (80.0-100.0) fL MCH 33.1 (25.0-35.0) pg MCHC 34.5 (31.0-37.0) g/dL RDW 13.1 (11.5-15.5) % Plt Count 313 (150-450) k/uL MPV 8.1 Neutrophils % 91 % Lymphocytes % 4 % Monocytes % 3 % Eosinophils % 1 % Basophils % 1 % Neutrophils # 11.5 H (1.3-7.7) k/uL Lymphocytes # 0.5 L (1.0-4.8) k/uL Monocytes # 0.4 (0-1.0) k/uL Eosinophils # 0.1 (0-0.7) k/uL Basophils # 0.1 (0-0.2) k/uL Sodium 138 (137-145) mmol/L Potassium 4.0 (3.5-5.1) mmol/L Chloride 108 H (98-107) mmol/L Carbon Dioxide 21 L (22-30) mmol/L Anion Gap 9 mmol/L BUN 11 (7-17) mg/dL Creatinine 1.00 (0.52-1.04) mg/dL Est GFR (CKD-EPI)AfAm 79 (>60 ml/min/1.73 sqM) Est GFR (CKD-EPI)NonAf 69 (>60 ml/min/1.73 sqM) Glucose 104 H (74-99) mg/dL Calcium 9.5 (8.4-10.2) mg/dL Magnesium 2.1 (1.6-2.3) mg/dL Total Bilirubin 1.0 (0.2-1.3) mg/dL AST 33 (14-36) U/L ALT 31 (4-34) U/L Alkaline Phosphatase 91 (38-126) U/L Total Protein 7.0 (6.3-8.2) g/dL Albumin 4.3 (3.5-5.0) g/dL Urine Color Urine Appearance (Clear) Urine pH (5.0-8.0) Ur Specific [place] (1.001-1.035) Urine Protein (Negative) Urine Glucose (UA) (Negative) Urine Ketones (Negative) Urine Blood (Negative) Urine Nitrite (Negative) Urine Bilirubin (Negative) Urine Urobilinogen (<2.0) mg/dL Ur Leukocyte Esterase (Negative) Influenza Type A (PCR) Detected A (Not Detectd) Influenza Type B (PCR) Not Detected (Not Detectd) RSV (PCR) Not Detected (Not Detectd) SARS-CoV-2 (PCR) Not Detected (Not Detectd) 11/08/23 Range/Units 12:02 WBC (3.8-10.6) k/uL RBC (3.80-5.40) m/uL Hgb (11.4-16.0) gm/dL Hct (34.0-46.0) % MCV (80.0-100.0) fL MCH (25.0-35.0) pg MCHC (31.0-37.0) g/dL RDW (11.5-15.5) % Plt Count (150-450) k/uL MPV Neutrophils % % Lymphocytes % % Monocytes % % Eosinophils % % Basophils % % Neutrophils # (1.3-7.7) k/uL Lymphocytes # (1.0-4.8) k/uL Monocytes # (0-1.0) k/uL Eosinophils # (0-0.7) k/uL Basophils # (0-0.2) k/uL Sodium (137-145) mmol/L Potassium (3.5-5.1) mmol/L Chloride (98-107) mmol/L Carbon Dioxide (22-30) mmol/L Anion Gap mmol/L BUN (7-17) mg/dL Creatinine (0.52-1.04) mg/dL Est GFR (CKD-EPI)AfAm (>60 ml/min/1.73 sqM) Est GFR (CKD-EPI)NonAf (>60 ml/min/1.73 sqM) Glucose (74-99) mg/dL Calcium (8.4-10.2) mg/dL Magnesium (1.6-2.3) mg/dL Total Bilirubin (0.2-1.3) mg/dL AST (14-36) U/L ALT (4-34) U/L Alkaline Phosphatase (38-126) U/L Total Protein (6.3-8.2) g/dL Albumin (3.5-5.0) g/dL Urine Color Colorless Urine Appearance Clear (Clear) Urine pH 6.5 (5.0-8.0) Ur Specific [place] 1.006 (1.001-1.035) Urine Protein Negative (Negative) Urine Glucose (UA) Negative (Negative) Urine Ketones Negative (Negative) Urine Blood Negative (Negative) Urine Nitrite Negative (Negative) Urine Bilirubin Negative (Negative) Urine Urobilinogen <2.0 (<2.0) mg/dL Ur Leukocyte Esterase Negative (Negative) Influenza Type A (PCR) (Not Detectd) Influenza Type B (PCR) (Not Detectd) RSV (PCR) (Not Detectd) SARS-CoV-2 (PCR) (Not Detectd) Disposition Clinical Impression: Influenza Disposition: HOME SELF-CARE Condition: Fair Instructions (If sedation given, give patient instructions): Influenza (ED) Prescriptions: methylPREDNISolone Dose Pack [Medrol Dose Pack] 4 mg PO DIRECTED #21 packet Oseltamivir [Tamiflu] 75 mg PO Q12HR #10 cap Albuterol Inhaler [Ventolin Hfa Inhaler] 1 - 2 puff INHALATION Q4HR PRN #1 each PRN Reason: Shortness Of Breath Is patient prescribed a controlled substance at d/c from ED?: No Referrals: None,Stated [Primary Care Provider] - 1-2 days Titi Arthur DO [REFERRING] - 1-2 days Time of Disposition: 13:31
[2023-11-08 12:23] LABS: Basophils # (A) 0.1 k/uL (0-0.2); Basophils % (A) 1 %; Eosinophils # (A) 0.1 k/uL (0-0.7); Eosinophils % (A) 1 %; HCT 40.7 % (34.0-46.0); Lymphocytes # (A) 0.5 k/uL (1.0-4.8); Lymphocytes % (A) 4 %; MCH 33.1 pg (25.0-35.0); MCHC 34.5 g/dL (31.0-37.0); MCV 96.1 fL (80.0-100.0); Mean Platelet Volume 8.1; Monocytes # (A) 0.4 k/uL (0-1.0); Monocytes % (A) 3 %; Neutrophils # (A) 11.5 k/uL (1.3-7.7); Neutrophils % (A) 91 %; Platelet Count 313 k/uL (150-450); RBC 4.23 m/uL (3.80-5.40); RDW 13.1 % (11.5-15.5); WBC 12.7 k/uL (3.8-10.6)
[2023-11-08 12:35] LABS: ALT 31 U/L (4-34); AST 33 U/L (14-36); African American GFR (CKD) 79 (>60 ml/min/1.73 sqM); Albumin 4.3 g/dL (3.5-5.0); Alkaline Phosphatase 91 U/L (38-126); Anion Gap 9 mmol/L; Blood Urea Nitrogen 11 mg/dL (7-17); Calcium 9.5 mg/dL (8.4-10.2); Carbon Dioxide 21 mmol/L (22-30); Chloride 108 mmol/L (98-107); Glucose 104 mg/dL (74-99); Magnesium 2.1 mg/dL (1.6-2.3); Non-African American GFR(CKD) 69 (>60 ml/min/1.73 sqM); Sodium 138 mmol/L (137-145)
[2023-11-08 12:36] LABS: Appearance,Urine Clear (Clear); Bilirubin,Urine Negative (Negative); Blood,Urine Negative (Negative); Color,Urine Colorless; Glucose,Urine (UA) Negative (Negative); Ketones,Urine Negative (Negative); Leukocyte Esterase,Urine Negative (Negative); Nitrite,Urine Negative (Negative); PH, Urine 6.5 (5.0-8.0); Protein,Urine Negative (Negative); Specific Gravity,Urine 1.006 (1.001-1.035); Urobilinogen,Urine <2.0 mg/dL (<2.0)
--- NOTE | 2023-11-08 12:49 | XR ---
EXAMINATION TYPE: XR chest 2V DATE OF EXAM: 11/08/2023 COMPARISON: 07/19/2017 TECHNIQUE: PA and lateral views submitted. HISTORY: Cough FINDINGS: The lungs are clear and there is no pneumothorax, pleural effusion, or focal pneumonia. Heart size normal and no overt failure. Osseous structures demonstrate hypertrophic and degenerative changes of the spine. Hyperinflation suggestive of COPD. Biapical pleural thickening. IMPRESSION: 1. No acute process.
[2023-11-08 13:14] VITALS: BP 101/70; PULSE 95; RESP 18
[2023-11-08] MEDS: KETOROLAC 15 MG/ML 1 ML VIAL IVP STA (13:37)
[2023-11-08] MEDS: ONDANSETRON 4 MG/2 ML VIAL IVP STA (13:37)
== END 2023-11-08 13:48 | disposition home or self-care (01) ==
LOC: EC 11:23
DX: J10.1 Influenza due to other identified influenza virus with other respiratory manifestations (principal); J44.9 Chronic obstructive pulmonary disease, unspecified; F32.A Depression, unspecified; F41.9 Anxiety disorder, unspecified; F17.200 Nicotine dependence, unspecified, uncomplicated; F12.90 Cannabis use, unspecified, uncomplicated; Z20.822 Contact with and (suspected) exposure to COVID-19; Z79.899 Other long term (current) drug therapy; Z90.49 Acquired absence of other specified parts of digestive tract; Z90.710 Acquired absence of both cervix and uterus
CPT/HCPCS: 99284 ×2; 96374 ×2; 96375 ×2; 36415; 93005; 80053; 83735; 85025; 81003; 87636; 71046; J2405; J1885

== ENCOUNTER → 2025-01-01 | Outpatient (CLI) | payer MEDICARE, OTHER ==
--- NOTE | 2025-01-01 15:13 | XR ---
EXAMINATION TYPE: XR chest 2V DATE OF EXAM: 01/01/2025 12:36 PM COMPARISON: 11/08/2023 CLINICAL INDICATION: Female, 44 years old with history of J44.9 CHRONIC OBSTRUCTIVE PULMONARY DISEASE , UNSPE, , TECHNIQUE: Frontal and lateral views FINDINGS: The cardiomediastinal silhouette, aorta, and pulmonary vasculature are within normal limits. Hazy low er lung densities likely relating to overlying soft tissue. Otherwise, lungs and pleural spaces are c lear. IMPRESSION: No definite acute process. [facility], , 01/01/2025 3:11 PM
== END | disposition home or self-care (01) ==
LOC: RADXRMAIN 12:11
PROVIDERS: ATTEND Nurse Practitioner Family
DX: J44.9 Chronic obstructive pulmonary disease, unspecified (principal)
CPT/HCPCS: 71046

== ENCOUNTER → 2025-01-27 | Outpatient (CLI) | payer MEDICARE ==
--- NOTE | 2025-01-27 16:08 | CT ---
EXAMINATION TYPE: CT abdomen pelvis wo con CT DLP: 877.2 mGycm, Automated exposure control for dose reduction was used. DATE OF EXAM: 01/27/2025 3:35 PM COMPARISON: CT abdomen pelvis 04/23/2020, 08/21/2018, abdominal ultrasound 06/19/2020, pelvic ultrasoun d 03/09/2021, 05/29/2020 CLINICAL INDICATION:Female, 45 years old with history of R10.9 ABD PAIN; GENERALIZED ABDOMINAL/ BACK PAIN. HX OF TECHNIQUE: Standard CT of the abdomen and pelvis following the administration of oral contrast. Cor onal and sagittal reformats were performed. FINDINGS: Limited examination due to lack of intravenous contrast. LOWER CHEST: Linear atelectasis within the left lung base. Couple of stable right lower lobe pulmonar y nodules the largest measuring up to 5.6 mm dating back to 2019 and considered benign due to stabili ty. No follow-up recommended. ABDOMEN LIVER: Unremarkable noncontrast appearance. GALLBLADDER AND BILE DUCTS: Unremarkable noncontrast appearance. PANCREAS: Unremarkable noncontrast appearance. SPLEEN: Unremarkable noncontrast appearance. ADRENAL GLANDS: Unremarkable noncontrast appearance.. KIDNEYS AND URETERS: No evidence of hydronephrosis or renal calculus. No hydroureter or ureteral calc ulus identified. PELVIS BLADDER: Unremarkable noncontrast appearance. REPRODUCTIVE: Post hysterectomy changes. ABDOMEN & PELVIS STOMACH AND BOWEL: Stomach and duodenum are unremarkable. Enteric contrast reaches the mid to distal small bowel. Post surgical changes from appendectomy. No focal bowel wall thickening or surrounding i nflammatory changes. No significant diverticulosis. No evidence of bowel obstruction. PERITONEUM: No evidence of pneumoperitoneum or free fluid. VASCULATURE: No evidence of aortic aneurysm. MUSCULOSKELETAL: No acute osseous abnormalities LYMPH NODES: No gross evidence for lymphadenopathy. SOFT TISSUE/ABDOMINAL WALL: Small fat-containing umbilical hernia. IMPRESSION: No CT evidence for acute abdominal/pelvic process. [facility], , 01/27/2025 4:06 PM
== END | disposition home or self-care (01) ==
LOC: RADCTMAIN 13:39
PROVIDERS: ATTEND Family Medicine
DX: K42.9 Umbilical hernia without obstruction or gangrene (principal)
CPT/HCPCS: 74176

== ENCOUNTER → 2025-03-08 | Outpatient (CLI) | payer MEDICARE ==
[2025-03-09 00:41] LABS: ALT 34 U/L (8-44); AST 17 U/L (13-35); Albumin 4.2 g/dL (3.8-4.9); Albumin/Globulin Ratio 1.75 Ratio (1.60-3.17); Alkaline Phosphatase 81 U/L (41-126); Blood Urea Nitrogen 20.4 mg/dL (9.0-27.0); Calcium 9.5 mg/dL (8.7-10.3); Carbon Dioxide 21.6 mmol/L (21.6-31.8); Chloride 106 mmol/L (96-109); Chol/HDL Ratio 4.98 Ratio; Globulin 2.4 g/dL (1.6-3.3); Glucose 85 mg/dL (70-110); LDL Cholesterol,Calculated 99.8 mg/dL (0.0-131.0); Potassium 4.5 mmol/L (3.5-5.5); Sodium 141 mmol/L (135-145); T4, Free (Free Thyroxine) 1.17 ng/dL (0.80-1.80); Total Bilirubin 0.3 mg/dL (0.3-1.2); Total Protein 6.6 g/dL (6.2-8.2)
[2025-03-09 06:36] LABS: Basophils # (A) 0.27 X 10*3/uL (0.00-0.10); Basophils % (A) 1.8 %; Eosinophils # (A) 0.34 X 10*3/uL (0.04-0.35); Eosinophils % (A) 2.3 %; HCT 44.1 % (37.2-46.3); HGB 14.7 g/dL (12.0-15.0); Lymphocytes % (A) 26.6 %; MCHC 33.3 g/dL (32.0-37.0); MCV 99.1 FL (80.0-97.0); Mean Platelet Volume 10.5 FL (9.5-12.2); Monocytes # (A) 0.85 X 10*3/uL (0.20-1.00); Monocytes % (A) 5.8 %; NRBC Per 100 WBC 0 X 10*3/uL (0.00-0.01); Neutrophils # (A) 9.03 X 10*3/uL (1.80-7.70); Neutrophils % (A) 61.5 %; Platelet Count 406 X 10*3/uL (140-440); RBC 4.45 X 10*6/uL (4.10-5.20); RDW 12.5 % (11.5-14.5); WBC 14.68 X 10*3/uL (4.50-10.00)
== END | disposition home or self-care (01) ==
LOC: LABWHC1 09:46
PROVIDERS: ATTEND Family Medicine
DX: F31.32 Bipolar disorder, current episode depressed, moderate (principal); E66.01 Morbid (severe) obesity due to excess calories; R03.0 Elevated blood-pressure reading, without diagnosis of hypertension
CPT/HCPCS: 36415; 80053; 80061; 83036; 84439; 84443; 85025

== ENCOUNTER 2025-03-30 12:51 | Emergency (ER) | payer MEDICARE ==
[2025-03-30 12:56] VITALS: TEMP 97.9
--- NOTE | 2025-03-30 12:58 | ED ---
General Adult HPI - General Chief complaint: Chest Pain Stated complaint: Chest Pain/Right Arm Numbness Time Seen by Provider: 03/30/25 12:57 Source: patient Mode of arrival: ambulatory Limitations: no limitations - History of Present Illness Initial comments: Patient presents to the ED complaining of having left-sided chest pain intermittently for the past 2 days. Patient states that this pain radiates to the right side of her chest at times, and she states that she has also had associated dyspnea and nausea. Patient also states that she has had a "flare" of her ankylosing spondylitis for the past week or so with symptoms of thoracic back pain and right hand tingling. Patient also states that she feels anxious. Patient denies any known trauma or injury, fever or chills, headache, focal weakness, visual changes, speech difficulty, neck/arm/jaw pain, pleuritic pain, cough or cold symptoms, palpitations, dizziness, syncope, abdominal pain, vomiting or diarrhea, dysuria or urinary symptoms, incontinence, urinary retention, leg or calf swelling or pain, or any other symptoms or complaints. Patient denies having any chest pain at present. - Related Data Home Medications Medication Instructions Recorded Confirmed ALPRAZolam [Xanax] 0.5 mg PO TID PRN 08/29/18 07/14/21 Ergocalciferol (Vitamin D2) 50,000 unit PO QMONTH 08/29/18 07/14/21 [Vitamin D2] Omeprazole [PriLOSEC] 40 mg PO DAILY 08/29/18 07/14/21 risperiDONE 3 mg PO HS 08/29/18 07/14/21 traZODone HCL 200 mg PO HS 08/29/18 07/14/21 Albuterol Inhaler [Ventolin Hfa 1 - 2 puff INHALATION RT-Q6H PRN 06/04/19 07/14/21 Inhaler] oxyCODONE HCL/ACETAMINOPHEN 1 tab PO Q6HR PRN 07/14/21 07/14/21 [Percocet 10-325 mg] Previous Rx's Medication Instructions Recorded Ibuprofen [Motrin] 600 mg PO Q6HR PRN #30 tab 07/16/21 oxyCODONE HCL/ACETAMINOPHEN 1 tab PO Q6HR PRN 3 Days #12 tab 07/16/21 [Percocet 10-325 mg] Acetaminophen [Tylenol Extra 500 mg PO Q6HR PRN #40 tablet 03/01/23 Strength] Amoxic-Pot Clav 875-125Mg 1 tab PO Q12HR 7 Days #14 tab 03/01/23 [Augmentin 875-125] Albuterol Inhaler [Ventolin Hfa 1 - 2 puff INHALATION Q4HR PRN #1 11/08/23 Inhaler] each Oseltamivir [Tamiflu] 75 mg PO Q12HR #10 cap 11/08/23 methylPREDNISolone Dose Pack 4 mg PO DIRECTED #21 packet 11/08/23 [Medrol Dose Pack] Allergies Allergy/AdvReac Type Severity Reaction Status Date / Time No Known Allergies Allergy Verified 03/30/25 12:56 Review of Systems ROS Statement: Those systems with pertinent positive or pertinent negative responses have been documented in the HPI. ROS Other: All systems not noted in ROS Statement are negative. Past Medical History Past Medical History: COPD, Osteoarthritis (OA) Additional Past Medical History / Comment(s): scoliosis, djd, ankylosing spondylitis, heart murmur, uterine fibroids History of Any Multi-Drug Resistant Organisms: None Reported Past Surgical History: Appendectomy, Hysterectomy Additional Past Surgical History / Comment(s): D & C Past Anesthesia/Blood Transfusion Reactions: No Reported Reaction Past Psychological History: Anxiety, Depression Smoking Status: Current every day smoker Past Alcohol Use History: Occasional Past Drug Use History: Marijuana - Past Family History Mother Family Medical History: Cancer Additional Family Medical History / Comment(s): breast cancer General Exam Limitations: no limitations General appearance: alert, anxious Head exam: Present: atraumatic Eye exam: Present: normal appearance, PERRL, EOMI ENT exam: Present: mucous membranes moist Neck exam: Present: other (Trachea is in midline) Respiratory exam: Present: normal lung sounds bilaterally. Absent: respiratory distress, wheezes, rales, rhonchi, stridor, chest wall tenderness Cardiovascular Exam: Present: regular rate, normal rhythm, normal heart sounds, other (Normal radial pulses bilaterally) GI/Abdominal exam: Present: soft. Absent: distended, tenderness, guarding Extremities exam: Present: full ROM, other (Negative Homans' sign bilaterally). Absent: tenderness, pedal edema, calf tenderness Back exam: Present: normal inspection. Absent: tenderness, CVA tenderness (R), CVA tenderness (L) Neurological exam: Present: alert, oriented X3, CN II-XII intact. Absent: motor sensory deficit Psychiatric exam: Present: anxious Skin exam: Present: warm, dry, normal color Course Vital Signs 03/30/25 12:52 Temperature 97.9 F Pulse Rate 105 H Respiratory 20 Rate Blood Pressure 163/103 O2 Sat by Pulse 99 Oximetry - Reevaluation(s) Reevaluation #1: 03/30/25 15:23 Patient reports improvement in her symptoms with the IV Ativan that she was given in the ED. Patient denies development of any new symptoms while in the ED. Patient remains alert and breathing comfortably with a normal room air oxy gen saturation. Patient continues to have a normal/nonfocal neurological exam. Patient is aware of her test results, and she feels comfortable being discharged home at this time. Patient to get a ride home from the ED today. Patient was counseled about chest pain, back pain and paresthesias. She was clearly explained return and follow-up instructions, and she was instructed to follow-up closely with her primary care provider. EKG Findings - EKG Comments: EKG Findings:: ED physician interpretation (interpreted by me): Normal sinus rhythm, ventricular rate of 99 bpm, no ectopy, normal PA and QRS intervals, normal QT interval, normal axis, no ST or T wave abnormality Medical Decision Making - Medical Decision Making Was pt. sent in by a medical professional or institution (PIOT[employer] Pierce, SIGNALS INTELLIGENCE SUPERINTENDENT, urgent care, hospital, or fpc...) When possible be specific @ -No Did you speak to anyone other than the patient for history (EMS, parent, family, police, friend...)? What history was obtained from this source @ -No Did you review nursing and triage notes (agree or disagree)? Why? @ -I reviewed and agree with nursing and triage notes Were old charts reviewed (outside hosp., previous admission, EMS record, old EKG, old radiological studies, urgent care reports/EKG's, fpc records)? Report findings @ -No old charts were reviewed Differential Diagnosis (chest pain, altered mental status, abdominal pain women, abdominal pain men, vaginal bleeding, weakness, fever, dyspnea, syncope, headache, dizziness, GI bleed, back pain, seizure, CVA, palpatations, mental health, musculoskeletal)? @ -Differential Chest Pain: Stable Angina, Unstable Angina, STEMI, NSTEMI, Aortic Dissection, Pneumothorax, Musculoskeletal, Esophageal Spasm, GERD, pulmonary embolism, pleurisy, anxiety, paresthesias, neuropathy, radiculopathy, ankylosing spondylitis, back pain, muscle strain, spasm, this is not meant to be an all-inclusive list. EKG interpreted by me (3pts min.). @ -As above X-rays interpreted by me (1pt min.). @ -Chest x-ray was reviewed myself and shows no acute cardiopulmonary process. I agree with the radiologist's interpretation as above. CT interpreted by me (1pt min.). @ -None done U/S interpreted by me (1pt. min.). @ -None done What testing was considered but not performed or refused? (CT, X-rays, U/S, labs)? Why? @ -None What meds were considered but not given or refused? Why? @ -None Did you discuss the management of the patient with other professionals (professionals i.e. , PA, SIGNALS INTELLIGENCE SUPERINTENDENT, lab, RT, psych nurse, geriatric social work professor, steersman, t eacher, registration officer, case specialist)? Give summary @ -No Was smoking cessation discussed for >3mins.? @ -No Was critical care preformed (if so, how long)? @ -No Were there social determinants of health that impacted care today? How? (Homelessness, low income, unemployed, alcoholism, drug addiction, transportation, low edu. Level, literacy, decrease access to med. care, senior care, rehab)? @ -No Was there de-escalation of care discussed even if they declined (Discuss DNR or withdrawal of care, Hospice)? DNR status @ -No What co-morbidities impacted this encounter? (DM, HTN, Smoking, COPD, CAD, Cancer, CVA, ARF, Chemo, Hep., AIDS, mental health diagnosis, sleep apnea, morbid obesity)? @ -None Was patient admitted / discharged? Hospital course, mention meds given and route, prescriptions, significant lab abnormalities, going to OR and other pertinent info. @ -Patient reports improvement in her symptoms with the IV Ativan that she received in the ED, and she is now much less anxious in appearance. Patient's EKG and chest x-ray are fairly unremarkable. Patient's troponin and D-dimer are within normal limits. I do not suspect an emergent medical condition at this time. Will discharge patient home at this time. Patient to get a ride home from the ED today. Clear return and follow-up instructions were provided. Patient feels comfortable with this plan. Undiagnosed new problem with uncertain prognosis? @ -No Drug Therapy requiring intensive monitoring for toxicity (Heparin, Nitro, Insulin, Cardizem)? @ -No Were any procedures done? @ -No Diagnosis/symptom? @ -Default Acute, or Chronic, or Acute on Chronic? @ -Chest pain, anxiety Uncomplicated (without systemic symptoms) or Complicated (systemic symptoms)? @ -acute Side effects of treatment? @ -No Exacerbation, Progression, or Severe Exacerbation? @ -No Poses a threat to life or bodily function? How? (Chest pain, [place], [place], pneumonia, PE, COPD, DKA, ARF, appy, cholecystitis, CVA, Diverticulitis, Homicidal, Suic idal, threat to staff... and all critical care pts) @ -No Diagnosis/symptom? @ -Paresthesias, back pain Acute, or Chronic, or Acute on Chronic? @ -Acute on chronic Uncomplicated (without systemic symptoms) or Complicated (systemic symptoms)? @ -Default Side effects of treatment? @ -None Exacerbation, Progression, or Severe Exacerbation] @ -No Poses a threat to life or bodily function? @ -No - Lab Data Result diagrams: 03/30/25 13:28 03/30/25 13:28 Lab Results 03/30/25 03/30/25 03/30/25 Range/Units 13:28 13:28 13:28 WBC 16.05 H (4.50-10.00) 10*3/uL RBC 4.21 (4.10-5.20) 10*6/uL Hgb 13.8 (12.0-15.0) g/dL Hct 40.4 (37.2-46.3) % MCV 96.0 (80.0-97.0) fL MCH 32.8 H (27.0-32.0) pg MCHC 34.2 (32.0-37.0) g/dL Plt Count 406 (140-440) 10*3/uL MPV 9.6 (9.5-12.2) fL Immature Gran % (Auto) 0.9 % Neutrophils % 84.0 % Lymphocytes % 10.5 % Monocytes % 4.0 % Eosinophils % 0.1 % Basophils % 0.5 % Immature Gran # 0.14 H (0.00-0.04) 10*3/uL Neutrophils # 13.47 H (1.80-7.70) 10*3/uL Lymphocytes # 1.69 (0.90-5.00) 10*3/uL Monocytes # 0.65 (0.20-1.00) 10*3/uL Eosinophils # 0.02 L (0.04-0.35) 10*3/uL Basophils # 0.08 (0.00-0.10) 10*3/uL PT 10.6 (10.0-12.5) sec INR 1.0 (<1.2) APTT 21.8 L (22.0-30.0) sec D-Dimer 0.19 (<0.60) mg/L FEU Sodium 138 (137-145) mmol/L Potassium 4.4 (3.5-5.1) mmol/L Chloride 106 (98-107) mmol/L Carbon Dioxide 17 L (22-30) mmol/L Anion Gap 15 mmol/L BUN 16 (7-17) mg/dL Creatinine 1.06 H (0.52-1.04) mg/dL Est GFR (CKD-EPI)AfAm 73 (>60 ml/min/1.73 sqM) Est GFR (CKD-EPI)NonAf 63 (>60 ml/min/1.73 sqM) Glucose 128 H (74-99) mg/dL Calcium 10.9 H (8.4-10.2) mg/dL Magnesium 2.0 (1.6-2.3) mg/dL Total Bilirubin 0.4 (0.2-1.3) mg/dL AST 21 (14-36) U/L ALT 25 (4-34) U/L Alkaline Phosphatase 82 (38-126) U/L Troponin I (0.000-0.034) ng/mL NT-Pro-B Natriuret Pep 80 pg/mL Total Protein 7.7 (6.3-8.2) g/dL Albumin 4.8 (3.5-5.0) g/dL 03/30/25 Range/Units 13:28 WBC (4.50-10.00) 10*3/uL RBC (4.10-5.20) 10*6/uL Hgb (12.0-15.0) g/dL Hct (37.2-46.3) % MCV (80.0-97.0) fL MCH (27.0-32.0) pg MCHC (32.0-37.0) g/dL Plt Count (140-440) 10*3/uL MPV (9.5-12.2) fL Immature Gran % (Auto) % Neutrophils % % Lymphocytes % % Monocytes % % Eosinophils % % Basophils % % Immature Gran # (0.00-0.04) 10*3/uL Neutrophils # (1.80-7.70) 10*3/uL Lymphocytes # (0.90-5.00) 10*3/uL Monocytes # (0.20-1.00) 10*3/uL Eosinophils # (0.04-0.35) 10*3/uL Basophils # (0.00-0.10) 10*3/uL PT (10.0-12.5) sec INR (<1.2) APTT (22.0-30.0) sec D-Dimer (<0.60) mg/L FEU Sodium (137-145) mmol/L Potassium (3.5-5.1) mmol/L Chloride (98-107) mmol/L Carbon Dioxide (22-30) mmol/L Anion Gap mmol/L BUN (7-17) mg/dL Creatinine (0.52-1.04) mg/dL Est GFR (CKD-EPI)AfAm (>60 ml/min/1.73 sqM) Est GFR (CKD-EPI)NonAf (>60 ml/min/1.73 sqM) Glucose (74-99) mg/dL Calcium (8.4-10.2) mg/dL Magnesium (1.6-2.3) mg/dL Total Bilirubin (0.2-1.3) mg/dL AST (14-36) U/L ALT (4-34) U/L Alkaline Phosphatase (38-126) U/L Troponin I <0.012 (0.000-0.034) ng/mL NT-Pro-B Natriuret Pep pg/mL Total Protein (6.3-8.2) g/dL Albumin (3.5-5.0) g/dL - Radiology Data Chest x-ray: No acute cardiopulmonary disease/process. Disposition Clinical Impression: Chest pain, Anxiety, Back pain, Paresthesias Disposition: HOME SELF-CARE Condition: Stable Instructions (If sedation given, give patient instructions): Chest Pain (ED), Paresthesia (ED), Back Pain (ED), Anxiety (ED) Additional Instructions: Return to the ER immediately should you develop new or worsening pain, increased shortness of breath, a fever, feeling dizzy or faint, or new or worsening symptoms. Follow-up closely with your primary care provider. Is patient prescribed a controlled substance at d/c from ED?: No Referrals: Bi Bass MD [Primary Care Provider] - 1-2 days Time of Disposition: 15:32
[2025-03-30 13:37] LABS: Basophils # (A) 0.08 10*3/uL (0.00-0.10); Basophils % (A) 0.5 %; Eosinophils # (A) 0.02 10*3/uL (0.04-0.35); Eosinophils % (A) 0.1 %; HCT 40.4 % (37.2-46.3); HGB 13.8 g/dL (12.0-15.0); Lymphocytes # (A) 1.69 10*3/uL (0.90-5.00); Lymphocytes % (A) 10.5 %; MCH 32.8 pg (27.0-32.0); MCHC 34.2 g/dL (32.0-37.0); Mean Platelet Volume 9.6 fL (9.5-12.2); Monocytes # (A) 0.65 10*3/uL (0.20-1.00); Neutrophils # (A) 13.47 10*3/uL (1.80-7.70); Platelet Count 406 10*3/uL (140-440); RBC 4.21 10*6/uL (4.10-5.20); RDW 12.9 % (11.5-14.5); WBC 16.05 10*3/uL (4.50-10.00)
[2025-03-30 13:51] LABS: ALT 25 U/L (4-34); AST 21 U/L (14-36); African American GFR (CKD) 73 (>60 ml/min/1.73 sqM); Albumin 4.8 g/dL (3.5-5.0); Alkaline Phosphatase 82 U/L (38-126); Anion Gap 15 mmol/L; Blood Urea Nitrogen 16 mg/dL (7-17); Calcium 10.9 mg/dL (8.4-10.2); Carbon Dioxide 17 mmol/L (22-30); Chloride 106 mmol/L (98-107); Glucose 128 mg/dL (74-99); Non-African American GFR(CKD) 63 (>60 ml/min/1.73 sqM); Potassium 4.4 mmol/L (3.5-5.1); Sodium 138 mmol/L (137-145); Total Bilirubin 0.4 mg/dL (0.2-1.3); Total Protein 7.7 g/dL (6.3-8.2)
[2025-03-30 14:00] LABS: NT-Pro-B-Type Natriuretic Pept 80 pg/mL
[2025-03-30 14:08] LABS: Prothrombin Time 10.6 sec (10.0-12.5)
[2025-03-30 14:16] LABS: Partial Thromboplastin Time 21.8 sec (22.0-30.0)
--- NOTE | 2025-03-30 14:19 | XR ---
EXAMINATION TYPE: XR chest 2V DATE OF EXAM: 03/30/2025 2:16 PM COMPARISON: Chest radiographs from 01/01/2025 TECHNIQUE: XR chest 2V Frontal and lateral views of the chest. CLINICAL INDICATION:Female, 45 years old with history of Chest Pain; FINDINGS: Lungs/Pleura: There is no evidence of pleural effusion, focal consolidation, or pneumothorax. Pulmonary vascularity: Unremarkable. Heart/mediastinum: Cardiomediastinal silhouette is unremarkable. Musculoskeletal: No acute osseous pathology. IMPRESSION: No acute cardiopulmonary disease/process. [facility], , 03/30/2025 2:17 PM
[2025-03-30] MEDS: LORazepam 1 MG/0.5 ML VIAL IV STA (14:51)
[2025-03-30] MEDS: KETOROLAC 15 MG/ML 1 ML VIAL IVP STA (16:03)
[2025-03-30 16:56] VITALS: PULSE 65; RESP 16
[2025-03-30 16:58] VITALS: BP 146/88
== END 2025-03-30 16:58 | disposition home or self-care (01) ==
LOC: EC 12:51
DX: F41.9 Anxiety disorder, unspecified (principal); M54.9 Dorsalgia, unspecified; F17.200 Nicotine dependence, unspecified, uncomplicated
CPT/HCPCS: 36415; 93005; 85379; 83880; 80053; 83735; 84484; 85025; 85610; 85730; 71046; 99285; 96374; 96375; J2060; J1885